=== PATIENT | female | born 1965 ===

== ENCOUNTER 2020-01-19 11:05 | Outpatient (REF) | payer OTHER, SELFPAY ==
[2020-01-19 12:00] LABS: MANUAL DIFF FLAG NO
[2020-01-19 12:10] LABS: Basophils Percent Auto 0.4 % (0-2); Eosinophils Absolute Auto 0.1 X10*3/uL (0.0-0.4); Eosinophils Percent Auto 1.1 % (0-4); Hematocrit 33.7 % (37-47); Hemoglobin 10.4 g/dl (12.0-16.0); Imm Gran Abs Auto 0.05 X10*3/uL (0.00-0.03); Imm Gran Pct Auto 0.9 % (0.0-0.4); Lymphocytes Absolute Auto 1.4 X10*3/uL (1.2-4.9); Lymphocytes Percent Auto 25.6 % (20-40); Mean Corpuscular HGB Conc 30.9 g/dl (31.0-35.0); Mean Corpuscular Hemoglobin 20.6 pg (27.0-33.0); Mean Corpuscular Volume 66.7 fL (80-98); Mean Platelet Volume 10.3 fL (9.4-12.3); Monocytes Absolute Auto 0.4 X10*3/uL (0.1-1.2); Monocytes Percent Auto 6.5 % (2-11); Neutrophils Absolute Auto 3.6 X10*3/uL (2.0-8.3); Neutrophils Percent Auto 65.5 % (45-73); Platelet Count 358 X10*3/uL (160-400); Red Blood Count 5.05 X10*6/uL (4.20-5.50); Red Cell Distribution Width 15.4 % (11.0-16.0); White Blood Count 5.6 X10*3/uL (4.8-10.8)
[2020-01-19 12:50] LABS: Free T4 (Free Thyroxine) 1.28 ng/dL (0.71-1.85); Thyroid Stimulating Hormone 0.84 mIU/mL (0.32-4.0)
[2020-01-19 12:55] LABS: Troponin-I High Sensitivity < 3.5 ng/L (<3.5-17.0)
[2020-01-19 14:14] LABS: Alanine Aminotransferase 20 U/L (0-31); Albumin Level 4.4 g/dL (3.5-5.0); Alkaline Phosphatase 132 U/L (39-117); Anion Gap 12 (12-20); Aspartate Amino Transferase 14 U/L (5-31); Bilirubin Total 0.2 mg/dL (0.0-1.0); Blood Urea Nitrogen 10 mg/dL (9-16); C Reactive Protein 1.74 mg/dL (< or = 0.50); Calcium 9.7 mg/dL (8.4-10.2); Carbon Dioxide 29 mmol/L (22-29); Chloride 98 mmol/L (96-108); Estimated Glomerular Filt Rate > 60; Glucose Random 360 mg/dL (60-115); Iron 27 mcg/dL (30-160); Percent Iron Saturation 7 % (15-50); Potassium 4.4 mmol/l (3.3-5.1); Sodium 135 mmol/L (135-145); Total Iron Binding Capacity 376 mcg/dL (228-428); Total Protein 7.7 g/dL (6.5-8.0); Unsaturated Iron Binding 349 ug/dL
[2020-01-19 16:37] LABS: Estimated Average Glucose 295 mg/dL; Hemoglobin A1c % 11.9 %
== END 2020-01-19 11:06 | disposition home or self-care (01) ==
LOC: HO.LAB 11:05
PROVIDERS: PCP Internal Medicine; Visit Provider Internal Medicine
DX: R42 Dizziness and giddiness (principal); I10 Essential (primary) hypertension; M79.602 Pain in left arm; R10.9 Unspecified abdominal pain; R53.83 Other fatigue
CPT/HCPCS: 36415; 80053; 82550; 83036; 83540; 84439; 84443; 84484; 85025; 86140

== ENCOUNTER 2020-01-24 12:23 | Emergency (ER) | payer OTHER, SELFPAY ==
[2020-01-24 12:44] VITALS: BP 153/74; PULSE 83; RESP 16; TEMP 37.1; O2SAT 99; BMI 27.8
[2020-01-24 12:46] VITALS: BP 153/74; PULSE 82; RESP 16; TEMP 37.1; O2SAT 99
--- NOTE | 2020-01-24 13:08 | XR_ITS ---
EXAMINATION: XR SHOULDER, LEFT CLINICAL INFORMATION: Left shoulder pain radiating down arm COMPARISON: None TECHNIQUE: AP external rotation and Grashey views of the left shoulder. FINDINGS: The bones and soft tissues are normal. No fracture. Glenohumeral and acromioclavicular alignment is anatomic with normal joint space. No abnormal soft tissue calcifications. The visualized portion of the lungs is clear. IMPRESSION: Normal left shoulder.
--- NOTE | 2020-01-24 13:08 | CT_ITS ---
EXAMINATION: CT HEAD WITHOUT CONTRAST CLINICAL INFORMATION: Headache COMPARISON: None TECHNIQUE: Contiguous axial imaging was performed from the skull base to vertex without intravenous administration of contrast. This CT examination was performed using dose optimization techniques as appropriate, variously including the following: *Automated exposure control *Adjustment of mA and/or kV according to patient size (this includes techniques or standardized protocols for targeted exams where dose is matched to indication/reason for exam; i.e. extremities or head) *Use of iterative reconstruction technique DLP: 762 mGy-cm FINDINGS: There is no evidence of acute intracranial hemorrhage or territorial infarction. No abnormal mass effect or midline shift is seen. Lawler to white matter differentiation is well preserved. No extra-axial fluid collections are identified. The ventricles are normal in size. There is no abnormal attenuation within the brain parenchyma. The osseous structures and soft tissues are normal. The mastoid air cells and visualized portions of the paranasal sinuses are well aerated. IMPRESSION: No acute intracranial pathology.
--- NOTE | 2020-01-24 13:08 | ECG_ITS ---
Test Reason : HEADACHE Blood Pressure : / mmHG Vent. Rate : 082 BPM Atrial Rate : 082 BPM P-R Int : 128 ms QRS Dur : 080 ms QT Int : 374 ms P-R-T Axes : 051 -04 002 degrees QTc Int : 436 ms Normal sinus rhythm Left axis deviation Nonspecific T wave abnormality Abnormal ECG No previous ECGs available Referred By: Henrique Cerna Electronically Signed By:CIRILO MONTAGUE MD
[2020-01-24 13:45] LABS: MANUAL DIFF FLAG NO
[2020-01-24 13:47] LABS: Basophils Percent Auto 0.2 % (0-2); Eosinophils Absolute Auto 0.1 X10*3/uL (0.0-0.4); Eosinophils Percent Auto 1.4 % (0-4); Hematocrit 34.9 % (37-47); Hemoglobin 10.6 g/dl (12.0-16.0); Imm Gran Abs Auto 0.02 X10*3/uL (0.00-0.03); Imm Gran Pct Auto 0.3 % (0.0-0.4); Lymphocytes Absolute Auto 1.6 X10*3/uL (1.2-4.9); Mean Corpuscular HGB Conc 30.4 g/dl (31.0-35.0); Mean Corpuscular Hemoglobin 19.9 pg (27.0-33.0); Mean Corpuscular Volume 65.6 fL (80-98); Mean Platelet Volume 9.6 fL (9.4-12.3); Monocytes Absolute Auto 0.4 X10*3/uL (0.1-1.2); Monocytes Percent Auto 7.5 % (2-11); Neutrophils Absolute Auto 3.6 X10*3/uL (2.0-8.3); Neutrophils Percent Auto 62.6 % (45-73); Platelet Count 340 X10*3/uL (160-400); Red Blood Count 5.32 X10*6/uL (4.20-5.50); Red Cell Distribution Width 15.3 % (11.0-16.0); White Blood Count 5.8 X10*3/uL (4.8-10.8)
[2020-01-24 13:58] LABS: Prothrombin Time 11.5 SEC (10.8-13.0)
[2020-01-24 14:01] LABS: Partial Thromboplastin Time 34.6 SEC (24.1-38.0)
--- NOTE | 2020-01-24 14:08 | ED_ITS ---
HPI - Headache General Chief Complaint: Headache Stated Complaint: arm pain headache r eye twitching Time Seen by Provider: 01/24/20 17:15 History of Present Illness HPI Narrative: Patient presents to ED for resolved right-sided headache and right eye twitching. Patient states history of migraines. Patient states only complaints physically is left shoulder pain radiating down left arm for the past week. Patient denies any chest pain or shortness of breath. Patient states no fever or chills. Patient denies any recent head trauma. patient presently denies any headache. Patient denies ever having any eye pain or blurry vision. MD elicited complaint: migraine Related Data Previous Rx's Medication Instructions Recorded naproxen 500 mg PO BID PRN #20 tab 01/24/20 Allergies Allergy/AdvReac Type Severity Reaction Status Date / Time prochlorperazine [Compazine] Allergy Unknown Verified 09/26/15 00:00 From COMPAZINE Allergy Unknown UNK Uncoded 12/24/19 16:03 Review of Systems Constitutional: Constitutional: Reports as per HPI and Reports no additional constitutional complaints Comments: headache resolved before coming to the ED Eyes: Eyes: Reports as per HPI and Reports no additional eye complaints ENT: Reports system reviewed and no additional complaints, except as documented and Reports as per HPI Cardiovascular: Cardiovascular: Reports as per HPI and Reports no additional cardiovascular complaints Respiratory: Respiratory: Reports as per HPI and Reports no additional respiratory complaints Gastrointestinal: Gastrointestinal: Reports as per HPI and Reports no additional gastrointestinal complaints Musculoskeletal: Musculoskeletal: Reports no additional musculoskeletal c omplaints and Reports as per HPI Comments: positive for left shoulder/arm Neurologic: Reports system reviewed and no additional complaints, except as documented and Reports as per HPI Psychiatric: Psychiatric: Reports no additional psychiatric complaints and Reports as per HPI PMF Past Medical History Medical History (Updated 01/24/20 @ 17:25 by MARTHA Hayden) Asthma Diabetes Migraine Social History Social History Alcohol intake: never Smoking Status: Never smoker Use of substances other than those prescribed or required for medical reasons: No Advance Directives: No Advance Directives Information Provided: No Physical Exam Vital Signs: Vital Signs: Vital Signs Temp Pulse Resp BP Pulse Ox 01/24/20 17:03 99.0 F 83 18 145/79 H 98 01/24/20 15:19 98.8 F 98 18 133/76 97 01/24/20 12:46 98.7 F 82 16 153/74 H 99 01/24/20 12:44 98.7 F 83 16 153/74 H 99 Body Mass Index 27.8 Const: General: cooperative, healthy appearing, comfortable and no acute distress HENMT: Head: Yes normal to inspection, No No palpable skull fracture present, Yes atraumatic, No Bejarano's sign, No contusion, No hematoma, No laceration, No occipital foramen tenderness, No raccoon eyes, No scalp lesion and No Temporal artery tenderness present Ears: hearing grossly normal bilaterally Eyes: General: appearance normal, both eyes and all related structures Visual Paz: normal visual paz by confrontation Neck: Neck: Yes normal visual inspection, Yes full ROM, Yes no lymphadenopathy, Yes no meningeal signs, No positive Brudzinski's sign, No positive Kernig's sign and No tender Chest: Chest palpation & inspection: normal inspection of the chest and normal palpation of entire chest wall Resp: Effort & Inspection: normal respiratory effort and able to speak in complete sentences Cardio: Jugular venous distension: no JVD Rate: regular rate Heart sounds: S1 normal heart sound present and S2 normal heart sound present GI: Inspection: Yes normal to inspection, No abdominal wall ecchymosis, No Abdominal wall edema, No distended, No obesity and No scaphoid Palpation (GI): Soft to palpation, not firm, nontender, no guarding and not rigid Percussion: Yes normal to percussion Auscultation: normal bowel sounds : General: No CVA tenderness and Yes no CVA tenderness Back/Spine/Pelvis: Back: no CVA tenderness, No CVA tenderness and No back tenderness Skin: General skin exam: no rashes or lesions noted Neuro: General: gait normal, no meningeal signs and CN's II-XI intact bilaterally Cranial nerves: Yes CN's II-XII intact bilaterally Extrem: Other: Left upper extremity negative for any redness, swelling, coolness, or bluish discoloration of fingers. Negative for any ecchymosis to indicate trauma. General: Yes normal to inspection and Yes full ROM Left upper extremity: normal to inspection, full ROM and shoulder/upper arm Details: tenderness Location: of the A-C joint Course Course Course Narrative: Headache resolved. Headache with resolved right eye twitching most likely due to migraines. Due to aging patient stating left arm pain patient will have EKG and troponin to rule out any cardiac etiology. Neuro exam is intact. Reevaluation(s) Reevaluation #1: Patient presents not in any distress. Once again patient denies any headache. Patient main concern was left arm pain Time: 14:18 Reevaluation #2: patient's shoulder x-ray is normal. Troponin negative after 1 week of left shoulder /arm pain. Head CT negative. Patient did not have any headache during the ED visit. Patient did not had any eye pain during ED visit. Diagnosis is migraine exacerbation. Patient already has imitriptan at home. Patient states before discharge her left arm pain is similar to her her carpal tunnel syndrome exacerbation of left wrist / forearm. Patient describes pain as tingling sharp cramping pain. patient already has medical sprain at home. Patient only ask for pain meds Time: 17:09 MDM - Headache MDM Narrative Medical decision making narrative: Left upper extremity pain. Left upper extremity negative for any redness, swelling, coldness, or bluish discoloration of fingers to indicate DVT, cellulitis, or arterial occlusion. Negative for any deformity to indicate fracture. Lab Data Result diagrams: 01/24/20 13:40 01/24/20 13:40 Labs: Lab Results 01/24/20 01/24/20 01/24/20 Range/Units 13:40 13:40 13:40 WBC 5.8 (4.8-10.8) X10*3/uL RBC 5.32 (4.20-5.50) X10*6/uL Hgb 10.6 L (12.0-16.0) g/dl Hct 34.9 L (37-47) % MCV 65.6 L (80-98) fL MCH 19.9 L (27.0-33.0) pg MCHC 30.4 L (31.0-35.0) g/dl RDW 15.3 (11.0-16.0) % Plt Count 340 (160-400) X10*3/uL MPV 9.6 (9.4-12.3) fL Immature Gran % (Auto) 0.3 (0.0-0.4) % Neut % (Auto) 62.6 (45-73) % Lymph % (Auto) 28.0 (20-40) % Radford % (Auto) 7.5 (2-11) % Eos % (Auto) 1.4 (0-4) % Baso % (Auto) 0.2 (0-2) % Lymph # (Auto) 1.6 (1.2-4.9) X10*3/uL Radford # (Auto) 0.4 (0.1-1.2) X10*3/uL Eos # (Auto) 0.1 (0.0-0.4) X10*3/uL Baso # (Auto) 0.0 (0.0-0.2) X10*3/uL Abs Immat Gran (auto) 0.02 (0.00-0.03) X10*3/uL Absolute Neuts (auto) 3.6 (2.0-8.3) X10*3/uL Absolute Nucleated RBC 0.000 (0.0-0.012) X10*3/uL Nucleated RBC % (auto) 0.0 (0.0-0.2) /100WBC PT 11.5 (10.8-13.0) SEC INR 1.0 (0.9-1.1) APTT 34.6 (24.1-38.0) SEC Sodium 138 (135-145) mmol/L Potassium 4.0 (3.3-5.1) mmol/l Chloride 103 (96-108) mmol/L Carbon Dioxide 27 (22-29) mmol/L Anion Gap 12 (12-20) BUN 15 (9-16) mg/dL Creatinine 0.73 (0.5-1.4) mg/dL Estim Creat Clear Calc 85.3 Estimated GFR > 60 Random Glucose 254 H (60-115) mg/dL Calcium 9.4 (8.4-10.2) mg/dL Magnesium 1.9 (1.6-2.6) mg/dL Total Bilirubin < 0.2 (0.0-1.0) mg/dL AST 15 (5-31) U/L ALT 22 (0-31) U/L Alkaline Phosphatase 132 H (39-117) U/L Troponin I High Sens (<3.5-17.0) ng/L Total Protein 7.7 (6.5-8.0) g/dL Albumin 4.4 (3.5-5.0) g/dL 01/24/20 Range/Units 13:40 WBC (4.8-10.8) X10*3/uL RBC (4.20-5.50) X10*6/uL Hgb (12.0-16.0) g/dl Hct (37-47) % MCV (80-98) fL MCH (27.0-33.0) pg MCHC (31.0-35.0) g/dl RDW (11.0-16.0) % Plt Count (160-400) X10*3/uL MPV (9.4-12.3) fL Immature Gran % (Auto) (0.0-0.4) % Neut % (Auto) (45-73) % Lymph % (Auto) (20-40) % Radford % (Auto) (2-11) % Eos % (Auto) (0-4) % Baso % (Auto) (0-2) % Lymph # (Auto) (1.2-4.9) X10*3/uL Radford # (Auto) (0.1-1.2) X10*3/uL Eos # (Auto) (0.0-0.4) X10*3/uL Baso # (Auto) (0.0-0.2) X10*3/uL Abs Immat Gran (auto) (0.00-0.03) X10*3/uL Absolute Neuts (auto) (2.0-8.3) X10*3/uL Absolute Nucleated RBC (0.0-0.012) X10*3/uL Nucleated RBC % (auto) (0.0-0.2) /100WBC PT (10.8-13.0) SEC INR (0.9-1.1) APTT (24.1-38.0) SEC Sodium (135-145) mmol/L Potassium (3.3-5.1) mmol/l Chloride (96-108) mmol/L Carbon Dioxide (22-29) mmol/L Anion Gap (12-20) BUN (9-16) mg/dL Creatinine (0.5-1.4) mg/dL Estim Creat Clear Calc Estimated GFR Random Glucose (60-115) mg/dL Calcium (8.4-10.2) mg/dL Magnesium (1.6-2.6) mg/dL Total Bilirubin (0.0-1.0) mg/dL AST (5-31) U/L ALT (0-31) U/L Alkaline Phosphatase (39-117) U/L Troponin I High Sens < 3.5 (<3.5-17.0) ng/L Total Protein (6.5-8.0) g/dL Albumin (3.5-5.0) g/dL Discharge Plan Discharge Clinical Impression: Migraine, Acute shoulder pain, Carpal tunnel syndrome of left wrist Patient Disposition: Home, Self-Care Instructions: Migraine Headache (ED), Shoulder Pain (ED) Additional Instructions: Return to the ED for any loss of vision, slurred speech, dizziness, paralysis of extremities, shortness of breath, chest pain, severe headache, swelling of upper extremity, redness of upper extremity, bluish discoloration of fingers, weakness, or any other concerning symptoms. Prescriptions: New naproxen 500 mg tablet 500 mg PO BID PRN (Reason: pain) Qty: 20 RF: 0 Referrals: Eleazar Viramontes MD [Primary Care Provider] - 2 days (migraine exacerbation. Left wrist carpal tunnel syndrome. Shoulder pain. Xray normal.) Bryan Smith MD [Physician] - 2 days (Left wrist carpal tunnel syndrome. Patient has history of carpal tunnel syndrome and has had rehab in the past. NO trauma of left forearm/hand/wrist.) Interventions: ED Discharge Assessment Last Done: 01/24/20 18:04 Discharge Date/Time: 01/24/20 18:04 Print Language: Maldivian
[2020-01-24 14:14] LABS: Alanine Aminotransferase 22 U/L (0-31); Albumin Level 4.4 g/dL (3.5-5.0); Alkaline Phosphatase 132 U/L (39-117); Anion Gap 12 (12-20); Aspartate Amino Transferase 15 U/L (5-31); Bilirubin Total < 0.2 mg/dL (0.0-1.0); Blood Urea Nitrogen 15 mg/dL (9-16); Calcium 9.4 mg/dL (8.4-10.2); Carbon Dioxide 27 mmol/L (22-29); Chloride 103 mmol/L (96-108); Creatinine Clr Calc Pharmacy 85.3; Estimated Glomerular Filt Rate > 60; Glucose Random 254 mg/dL (60-115); Magnesium 1.9 mg/dL (1.6-2.6); Sodium 138 mmol/L (135-145); Total Protein 7.7 g/dL (6.5-8.0)
[2020-01-24 14:15] LABS: Troponin-I High Sensitivity < 3.5 ng/L (<3.5-17.0)
[2020-01-24 15:19] VITALS: BP 133/76; PULSE 98; RESP 18; TEMP 37.1; O2SAT 97
[2020-01-24 17:03] VITALS: BP 145/79; PULSE 83; RESP 18; TEMP 37.2; O2SAT 98
== END 2020-01-24 18:04 | disposition home or self-care (01) ==
PROVIDERS: Physician Assistant; Emergency Provider Emergency Medicine; PCP Internal Medicine
DX: G43.909 Migraine, unspecified, not intractable, without status migrainosus (principal); G56.02 Carpal tunnel syndrome, left upper limb; M25.512 Pain in left shoulder; E11.9 Type 2 diabetes mellitus without complications; J45.909 Unspecified asthma, uncomplicated
CPT/HCPCS: 36415; 70450; 73030; 80053; 83735; 84484; 85025; 85610; 85730; 93005; 99284

== ENCOUNTER → 2020-02-08 12:42 | Outpatient (BNVA) | payer OTHER, SELFPAY | PROVIDERS: PCP Internal Medicine; Referring Provider Internal Medicine; Visit Provider Orthopaedic Surgery | DX: M79.602 Pain in left arm (principal); M25.512 Pain in left shoulder | CPT/HCPCS: 99212 ==

== ENCOUNTER 2020-06-30 15:47 | Outpatient (REF) | payer OTHER, SELFPAY ==
[2020-06-30 16:14] LABS: MANUAL DIFF FLAG NO
[2020-06-30 16:19] LABS: Basophils Percent Auto 0.5 % (0-2); Eosinophils Absolute Auto 0.1 X10*3/uL (0.0-0.4); Eosinophils Percent Auto 1.5 % (0-4); Hematocrit 35.9 % (37-47); Hemoglobin 11.1 g/dl (12.0-16.0); Imm Gran Abs Auto 0.03 X10*3/uL (0.00-0.03); Imm Gran Pct Auto 0.5 % (0.0-0.4); Lymphocytes Percent Auto 29.8 % (20-40); Mean Corpuscular HGB Conc 30.9 g/dl (31.0-35.0); Mean Corpuscular Hemoglobin 20.5 pg (27.0-33.0); Mean Corpuscular Volume 66.2 fL (80-98); Mean Platelet Volume 9.4 fL (9.4-12.3); Monocytes Absolute Auto 0.5 X10*3/uL (0.1-1.2); Monocytes Percent Auto 7.8 % (2-11); Neutrophils Percent Auto 59.9 % (45-73); Platelet Count 311 X10*3/uL (160-400); Red Blood Count 5.42 X10*6/uL (4.20-5.50); Red Cell Distribution Width 15.9 % (11.0-16.0); White Blood Count 6.6 X10*3/uL (4.8-10.8)
[2020-06-30 16:27] LABS: Estimated Average Glucose 312 mg/dL; Hemoglobin A1c % 12.5 %
[2020-06-30 16:46] LABS: Alanine Aminotransferase 38 U/L (0-31); Albumin Level 4.4 g/dL (3.5-5.0); Alkaline Phosphatase 155 U/L (39-117); Anion Gap 13 (12-20); Aspartate Amino Transferase 20 U/L (5-31); Bilirubin Total 0.2 mg/dL (0.0-1.0); Blood Urea Nitrogen 13 mg/dL (9-16); C Reactive Protein 1.86 mg/dL (< or = 0.50); Calcium 10.9 mg/dL (8.4-10.2); Carbon Dioxide 29 mmol/L (22-29); Chloride 101 mmol/L (96-108); Estimated Glomerular Filt Rate > 60; Glucose Random 217 mg/dL (60-115); Iron 51 mcg/dL (30-160); Lipase 35 U/L (8-78); Percent Iron Saturation 15 % (15-50); Potassium 4.4 mmol/L (3.3-5.1); Sodium 139 mmol/L (135-145); Total Iron Binding Capacity 341 mcg/dL (228-428); Total Protein 7.7 g/dL (6.5-8.0); Unsaturated Iron Binding 290 ug/dL
== END 2020-06-30 15:48 | disposition home or self-care (01) ==
LOC: HO.LAB 15:47
PROVIDERS: PCP Internal Medicine; Visit Provider Internal Medicine
DX: E11.9 Type 2 diabetes mellitus without complications (principal); D64.9 Anemia, unspecified; K21.9 Gastro-esophageal reflux disease without esophagitis; R10.9 Unspecified abdominal pain
CPT/HCPCS: 36415; 80053; 83036; 83540; 83690; 85025; 86140

== ENCOUNTER 2020-07-21 14:51 | Outpatient (REF) | payer OTHER, SELFPAY ==
[2020-07-21 16:00] LABS: COVID-19 Test Negative (Negative)
== END 2020-07-21 14:52 | disposition home or self-care (01) ==
LOC: HO.LAB 14:51
PROVIDERS: Visit Provider Internal Medicine
DX: Z20.822 Contact with and (suspected) exposure to COVID-19 (principal)
CPT/HCPCS: 36415; 87635; C9803

== ENCOUNTER 2020-08-05 12:00 | Outpatient (REF) | payer OTHER, SELFPAY ==
[2020-08-05 13:11] LABS: Anion Gap 12 (12-20); Blood Urea Nitrogen 9 mg/dL (9-16); Calcium 9.4 mg/dL (8.4-10.2); Carbon Dioxide 28 mmol/L (22-29); Chloride 103 mmol/L (96-108); Estimated Glomerular Filt Rate > 60; Glucose Random 169 mg/dL (60-115); Potassium 4.1 mmol/L (3.3-5.1); Sodium 139 mmol/L (135-145)
[2020-08-05 13:30] LABS: Estimated Average Glucose 235 mg/dL; Hemoglobin A1c % 9.8 %
== END 2020-08-05 12:01 | disposition home or self-care (01) ==
LOC: HO.LAB 12:00
PROVIDERS: PCP Internal Medicine; Visit Provider Internal Medicine
DX: E11.9 Type 2 diabetes mellitus without complications (principal)
CPT/HCPCS: 36415; 80048; 83036

== ENCOUNTER 2020-10-04 12:16 | Outpatient (REF) | payer OTHER, SELFPAY ==
[2020-10-04 13:40] LABS: Estimated Average Glucose 203 mg/dL; Hemoglobin A1c % 8.7 %
[2020-10-04 13:44] LABS: Anion Gap 11 (12-20); Blood Urea Nitrogen 16 mg/dL (9-16); Calcium 9.4 mg/dL (8.4-10.2); Carbon Dioxide 28 mmol/L (22-29); Chloride 103 mmol/L (96-108); Estimated Glomerular Filt Rate > 60; Glucose Random 185 mg/dL (60-115); Potassium 4.2 mmol/L (3.3-5.1); Sodium 138 mmol/L (135-145)
== END 2020-10-04 12:17 | disposition home or self-care (01) ==
LOC: HO.LAB 12:16
PROVIDERS: PCP Internal Medicine; Visit Provider Internal Medicine
DX: E11.9 Type 2 diabetes mellitus without complications (principal)
CPT/HCPCS: 36415; 80048; 83036

== ENCOUNTER 2020-10-12 09:05 | Day surgery (SDC) | payer OTHER, SELFPAY ==
[2020-09-15 14:56] VITALS: BMI 28.1
--- NOTE | 2020-09-19 13:33 | P.CONAN_ITS ---
HPI - Anesthesia Eval Consult details Narrative: 54yo F for Upper Endoscopy and Colonoscopy [facility] Active Problems Active Problems: All Active Problems (Updated 09/15/20 @ 14:45 by Herminia Navarro) Arm pain (Acute) Past Medical History Medical History (Updated 09/19/20 @ 13:34 by Danika Marcus) Anemia Arm pain Asthma Diabetes GERD (gastroesophageal reflux disease) Migraine Family History Family History Mother No problems noted. Father No problems noted. 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 Meds Allergies Allergy/AdvReac Type Severity Reaction Status Date / Time prochlorperazine [Compazine] Allergy Unknown Unknown Verified 09/15/20 14:46 Home Medications Medication Instructions Recorded Confirmed Last Taken Type albuterol sulfate [ProAir HFA] 2 puff PO Q4H PRN 09/15/20 09/15/20 Unknown History amitriptyline 1 tab PO BEDTIME 09/15/20 09/15/20 Unknown History atorvastatin 1 tab PO QPM 09/15/20 09/15/20 Unknown History mflhevtsev-oayyhedlzmueo-olmq 1 tab PO Q6H PRN 09/15/20 09/15/20 Unknown History ferrous sulfate 1 tab PO DAILY 09/15/20 09/15/20 Unknown History glipizide 1 tab PO BID 09/15/20 09/15/20 Unknown History ibuprofen 400 mg PO Q6H PRN 09/15/20 09/15/20 Unknown History metformin 2 tab PO BID 09/15/20 09/15/20 Unknown History omeprazole 1 cap PO QAM 09/15/20 09/15/20 Unknown History sitagliptin [Januvia] 1 tab PO DAILY 09/15/20 09/15/20 Unknown History Exam Exam Date and Time: September 19, 2020 1333 Height,Weight and Vital Signs: Height 5 ft 4 in Weight 74.389 kg Narrative Narrative: EKG 01/2020 Vent. Rate : 082 BPM Atrial Rate : 082 BPM P-R Int : 128 ms QRS Dur : 080 ms QT Int : 374 ms P-R-T Axes : 051 -04 002 degrees QTc Int : 436 ms Normal sinus rhythm Left axis deviation Nonspecific T wave abnormality Abnormal ECG No previous ECGs available Assessment and Plan Assessment Anesthesia Assessment: Chart Reviewed
--- NOTE | 2020-10-11 09:37 | P.CONAN_ITS ---
Documented by User: Danika Marcus 10/11/20 09:38 HPI - Anesthesia Eval Consult details Narrative: 54yo F for Upper Endoscopy and Colonoscopy [facility] Active Problems Active Problems: All Active Problems (Updated 09/19/20 @ 13:34 by Danika Marcus) Arm pain (Acute) Past Medical History Medical History (Updated 09/19/20 @ 13:34 by Danika Marcus) Anemia Arm pain Asthma Diabetes GERD (gastroesophageal reflux disease) Migraine Family History Family History Mother No problems noted. Father No problems noted. 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 Meds Allergies Allergy/AdvReac Type Severity Reaction Status Date / Time prochlorperazine [Compazine] Allergy Unknown Unknown Verified 10/12/20 09:52 Home Medications Medication Instructions Recorded Confirmed Last Taken Type albuterol sulfate [ProAir HFA] 2 puff PO Q4H PRN 09/15/20 09/15/20 Unknown History amitriptyline 1 tab PO BEDTIME 09/15/20 09/15/20 Unknown History atorvastatin 1 tab PO QPM 09/15/20 09/15/20 Unknown History svnbunliim-qlwjtkkynqzab-denc 1 tab PO Q6H PRN 09/15/20 09/15/20 Unknown History ferrous sulfate 1 tab PO DAILY 09/15/20 10/12/20 10/05/20 History glipizide 1 tab PO BID 09/15/20 09/15/20 Unknown History ibuprofen 400 mg PO Q6H PRN 09/15/20 09/15/20 Unknown History metformin 2 tab PO BID 09/15/20 10/12/20 10/11/20 11:00 History omeprazole 1 cap PO QAM 09/15/20 10/12/20 10/12/20 08:30 History sitagliptin [Januvia] 1 tab PO DAILY 09/15/20 09/15/20 Unknown History Exam Exam Date and Time: October 11, 2020 0937 Height,Weight and Vital Signs: Height 5 ft 4 in Weight 74.389 kg Pertinent Lab Results Pertinent Lab Results: Laboratory Tests 06/30/20 10/04/20 16:00 12:40 WBC 6.6 Hgb 11.1 L Hct 35.9 L Plt Count 311 Sodium 138 Potassium 4.2 Chloride 103 Carbon Dioxide 28 BUN 16 D Creatinine 0.73 Assessment and Plan Assessment Anesthesia Assessment: Chart Reviewed Documented by User: Radha Beatty 10/12/20 10:06 PMF[facility] Past Medical History Medical History (Updated 09/19/20 @ 13:34 by Danika Marcus) Anemia Arm pain Asthma Diabetes GERD (gastroesophageal reflux disease) Migraine Family History Family History Mother No problems noted. Father No problems noted. 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 Meds Allergies Allergy/AdvReac Type Severity Reaction Status Date / Time prochlorperazine [Compazine] Allergy Unknown Unknown Verified 10/12/20 09:52 Home Medications Medication Instructions Recorded Confirmed Last Taken Type albuterol sulfate [ProAir HFA] 2 puff PO Q4H PRN 09/15/20 09/15/20 Unknown History amitriptyline 1 tab PO BEDTIME 09/15/20 09/15/20 Unknown History atorvastatin 1 tab PO QPM 09/15/20 09/15/20 Unknown History rjtdknlujn-moeiskrrkmlhr-quyp 1 tab PO Q6H PRN 09/15/20 09/15/20 Unknown History ferrous sulfate 1 tab PO DAILY 09/15/20 10/12/20 10/05/20 History glipizide 1 tab PO BID 09/15/20 09/15/20 Unknown History ibuprofen 400 mg PO Q6H PRN 09/15/20 09/15/20 Unknown History metformin 2 tab PO BID 09/15/20 10/12/20 10/11/20 11:00 History omeprazole 1 cap PO QAM 09/15/20 10/12/20 10/12/20 08:30 History sitagliptin [Januvia] 1 tab PO DAILY 09/15/20 09/15/20 Unknown History Exam Airway Mallampati Class: II (Missing 3 teeth) TM Dist: >3cm Neck ROM: Full Heart: rrr Lungs: cta Assessment and Plan Assessment Anesthesia Assessment: Anesthesia Plan Discussed and Chart Reviewed Final Anesthetic Review NPO: Yes (Sip water with med) ASA Class: II Final Preanesthetic Review: No Changes in Pt Med Stat and Consent Obtained/Reviewed Patient Risk: Intermediate Procedure Risk: Intermediate Anesthetic Plan Anesthetic Plan: MAC: Disposition: Standard PACU
[2020-10-12 10:02] VITALS: BP 150/66; PULSE 63; RESP 16; TEMP 36.6; O2SAT 98
[2020-10-12 10:06] LABS: Glucose, Whole Blood 158 mg/dL (60-115)
[2020-10-12] MEDS: Lactated Ringers 1,000 ML 100 ML IVCONT (10:25)
[2020-10-12 11:34] VITALS: BP 116/66; PULSE 67; RESP 16; TEMP 36.2; O2SAT 97
--- NOTE | 2020-10-12 11:41 | PM.OP ---
Brief Operative Note Date of Service: 10/12/20 Pre-op diagnosis: Abdominal pain, anemia, screening Post-op diagnosis: other (Hiatal hernia, R/O celiac disease, Diverticulosis) Procedure: EGD with biopsies, Colonoscopy to the cecum Surgeon: Pedro Luis Burroughs Anesthesia: MAC Was an Dramatic Agent used for this Procedure?: No Estimated blood loss (mL): 4.0 Pathology: other (A. Descending duodenum B. Gastric antrum) Condition: stable Disposition: PACU
[2020-10-12 11:49] VITALS: BP 117/69; PULSE 63; RESP 17; TEMP 36.3; O2SAT 96
--- NOTE | 2020-10-12 12:28 | OP_ITS ---
SURGEON: Pedro Luis Burroughs MD PREOPERATIVE DIAGNOSIS: POSTOPERATIVE DIAGNOSIS: PROCEDURE PERFORMED: Esophagogastroduodenoscopy with biopsies, and colonoscopy to the cecum. Full consent has been obtained from her for this, including risks of bleeding and perforation. ESTIMATED BLOOD LOSS: COMPLICATIONS: ANESTHESIA: Monitored anesthesia care. ASSISTANTS: SPECIMENS: PREOPERATIVE DIAGNOSES: Gastroesophageal reflux, abdominal discomfort, and colorectal cancer screening. POSTOPERATIVE DIAGNOSES: Gastroesophageal reflux, abdominal discomfort, and colorectal cancer screening, hiatal hernia, rule out celiac disease, diverticulosis, and internal hemorrhoids. DESCRIPTION OF PROCEDURE: The patient was placed in the left lateral decubitus position. The Olympus video gastroscope was passed in the posterior oropharynx and upper esophagus under direct vision. The scope was passed slowly into the distal esophagus. The gastroesophageal junction appeared normal at 35 cm. There was no sign of any mass or ulceration. There was no gross evidence of Campos's esophagus. The scope entered into the stomach. There was a small hiatal hernia. The scope was advanced to the pylorus and the duodenum was cannulated to the descending portion. The duodenum including the bulb appeared normal without mass or ulceration. Biopsies were obtained at the second and third portions of duodenum. The scope was withdrawn back into the stomach. The gastric antrum and body appeared normal with good peristalsis. Scope was retroflexed visualizing the proximal stomach carefully, which appeared normal, without any sign of mass or ulceration. The scope was straightened. Biopsies were obtained from the gastric antrum. The scope was withdrawn back into the esophagus. The esophageal mucosa appeared normal. The scope was withdrawn from the patient. She was turned around for colonoscopy. The digital rectal exam revealed no abnormalities. The Olympus video pediatric colonoscope was entered into the rectum and advanced easily to the cecum. Once in the cecum, I did identify normal-appearing cecal pouch with appendiceal orifice and a normal-appearing ileocecal valve. The entire cecum and ileocecal valve appeared normal. The scope was slowly withdrawn assessing all mucosal surfaces carefully. Preparation was excellent. I did not visualize any sign of polyps, colitis, nor angiodysplasia. There was a mild amount of sigmoid diverticulosis. In the rectum, scope was retroflexed visualizing internal hemorrhoids, but no other pathology. The rectal mucosa appeared normal. The scope was straightened out and withdrawn from the patient. She tolerated both procedures well and was returned to the recovery area in stable condition. IMPRESSION: 1. Small hiatal hernia. 2. Rule out celiac disease. 3. Rule out gastritis and/or Helicobacter pylori. 4. Diverticulosis. 5. Internal hemorrhoids. PLAN: The results of the biopsies will be checked. She was advised to resume her iron in regard to her anemia. I do feel that her anemia is related to her heavy menses. She was advised not to use any aspirin and NSAIDs for at least a week. Given the patient's negative colonoscopy, I would recommend a repeat colonoscopy in 10 years for further screening. She was advised to see me again in several months for a followup visit. She was to have had an abdominal ultrasound, but she apparently did not keep that appointment. When I see her in followup, we can reschedule that if need be. If Helicobacter pylori is present in the gastric biopsies, I would not necessarily treat that at this time until I see her in followup. MD TYLER Frazeir/GINA / [id number]
== END 2020-10-12 12:30 | disposition home or self-care (01) ==
PROVIDERS: PCP Internal Medicine; Visit Provider Internal Medicine
PROC: (CPT 45378; principal; 2020-10-12 10:00)
DX: Z12.11 Encounter for screening for malignant neoplasm of colon (principal); K57.30 Diverticulosis of large intestine without perforation or abscess without bleeding; K64.8 Other hemorrhoids; K21.9 Gastro-esophageal reflux disease without esophagitis; K44.9 Diaphragmatic hernia without obstruction or gangrene; K29.50 Unspecified chronic gastritis without bleeding; B96.81 Helicobacter pylori [H. pylori] as the cause of diseases classified elsewhere; D50.9 Iron deficiency anemia, unspecified; J45.909 Unspecified asthma, uncomplicated; E11.9 Type 2 diabetes mellitus without complications; Z79.84 Long term (current) use of oral hypoglycemic drugs; Z79.899 Other long term (current) drug therapy; Z79.1 Long term (current) use of non-steroidal anti-inflammatories (NSAID); Z88.8 Allergy status to other drugs, medicaments and biological substances
CPT/HCPCS: 45378; 43239; 82947; 88305; 88342; J3010

== ENCOUNTER 2020-11-03 08:34 | Outpatient (REF) | payer OTHER, SELFPAY ==
--- NOTE | 2020-11-03 08:37 | EMG_ITS ---
Left median and ulnar motor and sensory studies were performed. Left radial sensory study was performed and paraspinal muscles were tested. 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 MD ASHOK Arguelles/GINA / [id number]
== END 2020-11-03 08:35 | disposition home or self-care (01) ==
LOC: HO.NEURO 08:34
PROVIDERS: PCP Internal Medicine; Visit Provider Internal Medicine
DX: M79.632 Pain in left forearm (principal)
CPT/HCPCS: 95886; 95909

== ENCOUNTER 2021-07-15 08:13 | Outpatient (REF) | payer OTHER, SELFPAY ==
[2021-07-15 08:24] LABS: MANUAL DIFF FLAG NO
[2021-07-15 09:26] LABS: Basophils Percent Auto 0.5 % (0-2); Eosinophils Absolute Auto 0.2 X10*3/uL (0.0-0.4); Eosinophils Percent Auto 2.9 % (0-4); Hematocrit 35.8 % (37.0-47.0); Hemoglobin 10.7 g/dl (12.0-16.0); Imm Gran Abs Auto 0.02 X10*3/uL (0.00-0.03); Imm Gran Pct Auto 0.3 % (0.0-0.4); Lymphocytes Absolute Auto 1.9 X10*3/uL (1.2-4.9); Mean Corpuscular HGB Conc 29.9 g/dl (31.0-35.0); Mean Corpuscular Volume 66.8 fL (80.0-98.0); Mean Platelet Volume 9.9 fL (9.4-12.3); Monocytes Absolute Auto 0.5 X10*3/uL (0.1-1.2); Neutrophils Absolute Auto 3.3 x10*3/uL (2.0-8.3); Neutrophils Percent Auto 55.3 % (45-73); Platelet Count 349 X10*3/uL (160-400); Red Blood Count 5.36 X10*6/uL (4.20-5.50); Red Cell Distribution Width 15.7 % (11.0-16.0); White Blood Count 5.9 X10*3/uL (4.8-10.8)
[2021-07-15 09:35] LABS: Estimated Average Glucose 214 mg/dL; Hemoglobin A1c % 9.1 %
[2021-07-15 09:39] LABS: Creatinine Urine 195.72 mg/dL; Microalbum/Creatinine Ratio Ur 8.1 ug/mg cr
[2021-07-15 09:55] LABS: Alanine Aminotransferase 39 U/L (0-31); Albumin Level 4.3 g/dL (3.5-5.0); Alkaline Phosphatase 141 U/L (39-117); Anion Gap 13 (12-20); Aspartate Amino Transferase 18 U/L (5-31); Bilirubin Total 0.4 mg/dL (0.0-1.0); Blood Urea Nitrogen 14 mg/dL (9-16); Calcium 9.8 mg/dL (8.4-10.2); Carbon Dioxide 28 mmol/L (22-29); Chloride 101 mmol/L (96-108); Cholesterol 228 mg/dL; Estimated Glomerular Filt Rate > 60; Glucose Fasting 192 mg/dL (60-99); HDL Cholesterol 43 mg/dL; LDL Cholesterol Calculated 129 mg/dl; Potassium 4.4 mmol/L (3.3-5.1); Sodium 138 mmol/L (135-145); Total Protein 7.6 g/dL (6.5-8.0); Triglycerides 284 mg/dL
[2021-07-15 10:02] LABS: Thyroid Stimulating Hormone 2.35 uIU/mL (0.32-4.0)
== END 2021-07-15 08:14 | disposition home or self-care (01) ==
LOC: HO.LAB 08:13
PROVIDERS: PCP Internal Medicine; Visit Provider Internal Medicine
DX: Z00.00 Encounter for general adult medical examination without abnormal findings (principal); E11.9 Type 2 diabetes mellitus without complications
CPT/HCPCS: 36415; 80053; 80061; 82043; 83036; 84443; 85025

== ENCOUNTER 2021-09-26 13:28 | Outpatient (REF) | payer OTHER, SELFPAY ==
--- NOTE | ~2021-09-26 | XR_ITS ---
EXAMINATION: XR FOOT, RIGHT CLINICAL INFORMATION: Fracture COMPARISON: None TECHNIQUE: AP, lateral, and oblique views of the right foot. FINDINGS: Bone alignment is normal. No fracture or dislocation is seen. Joint spaces are normal. There are calcaneal spurs. XR/XR foot RT min 3V IMPRESSION: No fracture or dislocation seen.
[2021-09-26 15:33] LABS: Estimated Average Glucose 157 mg/dL; Hemoglobin A1c % 7.1 %
[2021-09-26 16:18] LABS: Anion Gap 12 (12-20); Blood Urea Nitrogen 9 mg/dL (9-16); C Reactive Protein 1.83 mg/dL (< or = 0.50); Calcium 9.7 mg/dL (8.4-10.2); Carbon Dioxide 25 mmol/L (22-29); Chloride 105 mmol/L (96-108); Estimated Glomerular Filt Rate > 60; Glucose Random 126 mg/dL (60-115); Sodium 138 mmol/L (135-145); Uric Acid 3.6 mg/dL (2.4-5.7)
== END 2021-09-26 13:29 | disposition home or self-care (01) ==
LOC: HO.LAB 13:28
PROVIDERS: PCP Internal Medicine; Visit Provider Internal Medicine
DX: M79.671 Pain in right foot (principal); E11.9 Type 2 diabetes mellitus without complications
CPT/HCPCS: 36415; 73630; 80048; 83036; 84550; 86140

== ENCOUNTER 2022-12-22 08:26 | Outpatient (REF) | payer OTHER, SELFPAY ==
[2022-12-22 08:45] LABS: MANUAL DIFF FLAG NO
[2022-12-22 09:11] LABS: Basophils Percent Auto 0.6 % (0-2); Eosinophils Absolute Auto 0.2 X10*3/uL (0.0-0.4); Eosinophils Percent Auto 2.8 % (0-4); Hematocrit 36.4 % (37.0-47.0); Hemoglobin 11.3 g/dl (12.0-16.0); Imm Gran Abs Auto 0.01 X10*3/uL (0.00-0.03); Imm Gran Pct Auto 0.2 % (0.0-0.4); Lymphocytes Absolute Auto 1.5 X10*3/uL (1.2-4.9); Lymphocytes Percent Auto 28.8 % (20-40); Mean Corpuscular Hemoglobin 21.3 pg (27.0-33.0); Mean Corpuscular Volume 68.5 fL (80.0-98.0); Mean Platelet Volume 9.7 fL (9.4-12.3); Monocytes Absolute Auto 0.4 X10*3/uL (0.1-1.2); Monocytes Percent Auto 8.1 % (2-11); Neutrophils Absolute Auto 3.1 x10*3/uL (2.0-8.3); Neutrophils Percent Auto 59.5 % (45-73); Platelet Count 301 X10*3/uL (160-400); Red Blood Count 5.31 X10*6/uL (4.20-5.50); Red Cell Distribution Width 15.7 % (11.0-16.0); White Blood Count 5.3 X10*3/uL (4.8-10.8)
[2022-12-22 09:38] LABS: Creatinine Urine 176.31 mg/dL; Microalbum/Creatinine Ratio Ur 6.2 ug/mg cr (<30)
[2022-12-22 09:39] LABS: Estimated Average Glucose 146 mg/dL; Hemoglobin A1c % 6.7 % (<6.0)
[2022-12-22 09:45] LABS: Alanine Aminotransferase 19 U/L (0-31); Albumin Level 4.4 g/dL (3.5-5.0); Alkaline Phosphatase 125 U/L (39-117); Anion Gap 11 (12-20); Aspartate Amino Transferase 16 U/L (5-31); Bilirubin Total 0.4 mg/dL (0.0-1.0); Blood Urea Nitrogen 15 mg/dL (9-16); Calcium 9.9 mg/dL (8.4-10.2); Carbon Dioxide 29 mmol/L (22-29); Chloride 104 mmol/L (96-108); Cholesterol 221 mg/dL (<200); Estimated Glomerular Filt Rate > 60; Glucose Random 128 mg/dL (60-115); HDL Cholesterol 51 mg/dL (>40); LDL Cholesterol Calculated 141 mg/dL (<100); Potassium 4.2 mmol/L (3.3-5.1); Sodium 140 mmol/L (135-145); Triglycerides 147 mg/dL (<150)
[2022-12-22 10:01] LABS: Thyroid Stimulating Hormone 0.83 uIU/mL (0.32-4.0)
== END 2022-12-22 08:27 | disposition home or self-care (01) ==
LOC: HO.LAB 08:26
PROVIDERS: PCP Internal Medicine; Visit Provider Internal Medicine
DX: Z00.00 Encounter for general adult medical examination without abnormal findings (principal); E11.9 Type 2 diabetes mellitus without complications; F32.9 Major depressive disorder, single episode, unspecified; E78.00 Pure hypercholesterolemia, unspecified
CPT/HCPCS: 36415; 80053; 80061; 82043; 82570; 83036; 84443; 85025

== ENCOUNTER 2023-05-01 16:01 | Outpatient (REF) | payer OTHER, SELFPAY ==
[2023-05-01 18:04] LABS: Estimated Average Glucose 183 mg/dL
[2023-05-01 18:46] LABS: Alanine Aminotransferase 31 U/L (0-31); Albumin Level 4.4 g/dL (3.5-5.0); Alkaline Phosphatase 125 U/L (39-117); Anion Gap 12 (12-20); Aspartate Amino Transferase 19 U/L (5-31); Bilirubin Total 0.3 mg/dL (0.0-1.0); Blood Urea Nitrogen 12 mg/dL (9-16); Calcium 10.2 mg/dL (8.4-10.2); Carbon Dioxide 31 mmol/L (22-29); Chloride 102 mmol/L (96-108); Cholesterol 166 mg/dL (<200); Estimated Glomerular Filt Rate > 60; Glucose Random 74 mg/dL (60-115); HDL Cholesterol 45 mg/dL (>40); LDL Cholesterol Calculated 84 mg/dL (<100); Potassium 3.8 mmol/L (3.3-5.1); Sodium 141 mmol/L (135-145); Total Protein 7.6 g/dL (6.5-8.0); Triglycerides 187 mg/dL (<150)
== END 2023-05-01 16:02 | disposition home or self-care (01) ==
LOC: HO.LAB 16:01
PROVIDERS: PCP Internal Medicine; Visit Provider Internal Medicine
DX: E11.9 Type 2 diabetes mellitus without complications (principal); E78.00 Pure hypercholesterolemia, unspecified; I10 Essential (primary) hypertension
CPT/HCPCS: 36415; 80053; 80061; 83036

== ENCOUNTER → 2023-05-30 13:45 | Outpatient (BNV) | payer OTHER, SELFPAY | PROVIDERS: PCP Internal Medicine; Visit Provider Radiology Diagnostic Radiology | DX: Z12.31 Encounter for screening mammogram for malignant neoplasm of breast (principal) | CPT/HCPCS: 77063; 77067 ==

== ENCOUNTER 2023-05-30 13:53 | Outpatient (REF) | payer OTHER, SELFPAY | END 2023-05-30 13:54 | disposition home or self-care (01) | LOC: HO.MAMMO 13:53 | PROVIDERS: PCP Internal Medicine; Visit Provider Internal Medicine | DX: Z12.31 Encounter for screening mammogram for malignant neoplasm of breast (principal) | CPT/HCPCS: 77063; 77067 ==

== ENCOUNTER 2023-07-27 08:38 | Outpatient (REF) | payer OTHER, SELFPAY ==
[2023-07-27 10:27] LABS: Estimated Average Glucose 189 mg/dL; Hemoglobin A1c % 8.2 % (<6.0)
[2023-07-27 11:05] LABS: Alanine Aminotransferase 20 U/L (0-31); Albumin Level 4.3 g/dL (3.5-5.0); Alkaline Phosphatase 162 U/L (39-117); Anion Gap 13 (12-20); Aspartate Amino Transferase 14 U/L (5-31); Bilirubin Total 0.5 mg/dL (0.0-1.0); Blood Urea Nitrogen 14 mg/dL (9-16); Carbon Dioxide 29 mmol/L (22-29); Chloride 103 mmol/L (96-108); Estimated Glomerular Filt Rate > 60; Glucose Random 164 mg/dL (60-115); Potassium 4.3 mmol/L (3.3-5.1); Sodium 141 mmol/L (135-145); Total Protein 7.9 g/dL (6.5-8.0)
== END 2023-07-27 08:39 | disposition home or self-care (01) ==
LOC: HO.LAB 08:38
PROVIDERS: PCP Internal Medicine; Visit Provider Internal Medicine
DX: E11.9 Type 2 diabetes mellitus without complications (principal)
CPT/HCPCS: 36415; 80053; 83036

== ENCOUNTER 2023-08-23 10:50 | Outpatient (AMB) | payer OTHER, SELFPAY ==
--- NOTE | 2023-08-23 11:25 | MHC.OFFVIS ---
Intake Visit Reasons: New Pt - left shoulder pain Allergies prochlorperazine [Compazine] Allergy (Unknown, Verified 10/12/20 10:08) Swelling HPI HPI New Pt - left shoulder pain: Details: 57-year-old female who presents to the office today for evaluation of left shoulder pain for 2 months. She states she has pain in her left shoulder that is aggravated with sleeping, lifting, grabbing items and twisting motions. She also c/o numbness and tingling in her shoulder. She has a history of diabetes. Her sugar level is well controlled. [facility] Medical History (Updated 08/23/23 @ 11:27 by Damon Tovar PA-C) GERD (gastroesophageal reflux disease) Anemia Arm pain Asthma Diabetes Migraine Surgical History (Updated 09/15/20 @ 14:45 by Herminia Navarro RN) No significant past surgical history Family History Mother No problems noted. Father No problems noted. 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 Review of Systems Const All systems reviewed & are unremarkable except as noted in HPI and below Physical Exam Const General: cooperative, healthy appearing, comfortable, no acute distress, well developed and alert Orientation/consciousness: patient oriented x3 HEENT Head: Yes normal to inspection, Yes normocephalic and Yes atraumatic Eyes General: appearance normal, both eyes and all related structures Resp Effort & Inspection: normal respiratory effort and able to speak in complete sentences Cardio Rate: regular rate Peripheral pulses: Peripheral pulses 2+ throughout GI Palpation (GI): Soft to palpation Skin Lesions: no lesions Rashes: no rashes Neuro General: patient oriented x3 Extrem Other: Left shoulder normal to inspection. Tenderness over the bicipital groove and along the deltoid region of the shoulder. Forward flexion to 175, external rotation to 90, internal rotation to S1. 5/5 RTC strength. Negative Martin and cross body abduction. NVI. Office Procedures Joint Injection/Drain Joint Injection/Drain Primary Site: left shoulder Prep: site was prepped using aseptic technique, ethochloride spray was applied and injection warnings given Injected: 40 mg of, DepoMedrol, with 8 mL of, 1% plain lidocaine and in the subcromial space Approach Used: posterolateral Procedure: The patient tolerated the procedure well and there was some relief with the local anesthesia Coding 26904 - Glenohumeral/Tronchanteric Bursa/Intraarticular Procedure code (CPT) selection complete Tendon Injection Tendon Injection All charges added?: Procedure code (CPT) selection complete Assessment & Plan Assessment & Plan (1) Tendonitis of left rotator cuff: Code(s): M75.82 - Other shoulder lesions, left shoulder Category: Medical Plan We discussed options today which include steroid injection. They did consent to move forward with the left shoulder injection, which was tolerated well. I recommended rest, ice and elevation and OTC anti-inflammatories PRN for discomfort. If symptoms persist or worsens over the next 6-8 weeks, patient will contact the office, otherwise follow-up as needed. Orders: Orders XR shoulder LT min 2V Today Kimberly Salgado PA-C M25.519 - Pain in unspecified shoulder PT Evaluation and Treatment Today Damon Tovar PA-C M75.82 - Other shoulder lesions, left shoulder Patient Instructions: Scribed for Damon Tovar PA-C, by Darren Jin medical service technician, on 08/23/2023 at 11:00 AM EST.? I, Damon Tovar PA-C, have personally reviewed and agree with the information entered by the scribe. Coding Level of Care Code New Pt Level 3 (74948) Diagnoses Tendonitis of left rotator cuff M75.82 CPT Codes Coding - Joint 7: 79201 - Glenohumeral/Tronchanteric Bursa/Intraarticular ([id number])
== END 2023-08-23 12:21 | disposition home or self-care (01) ==
PROVIDERS: PCP Internal Medicine; Visit Provider Physician Assistant
DX: M75.82 Other shoulder lesions, left shoulder (principal)
CPT/HCPCS: 20610; 99203

== ENCOUNTER 2023-08-23 14:30 | Outpatient (REF) | payer OTHER, SELFPAY ==
--- NOTE | ~2023-08-23 | XR_ITS ---
EXAMINATION: XR SHOULDER, LEFT CLINICAL INFORMATION: Pain in left shoulder COMPARISON: None available. TECHNIQUE: AP external rotation, Grashey, scapular Y, and axillary views of the left shoulder. FINDINGS: The bones and soft tissues are normal. No fracture. Glenohumeral and acromioclavicular alignment is anatomic with normal joint space. No abnormal soft tissue calcifications. XR/XR shoulder LT min 2V IMPRESSION: Normal left shoulder.
== END 2023-08-23 14:31 | disposition home or self-care (01) ==
LOC: HO.HOSX 14:30
PROVIDERS: Visit Provider Physician Assistant
DX: M75.82 Other shoulder lesions, left shoulder (principal)
CPT/HCPCS: 20610; 73030; 99202; J1010

== ENCOUNTER 2023-10-28 08:17 | Outpatient (REF) | payer OTHER, SELFPAY ==
[2023-10-28 09:27] LABS: Estimated Average Glucose 151 mg/dL; Hemoglobin A1c % 6.9 % (<6.0)
[2023-10-28 09:59] LABS: Alanine Aminotransferase 17 U/L (0-31); Albumin Level 4.1 g/dL (3.5-5.0); Alkaline Phosphatase 145 U/L (39-117); Anion Gap 11 (12-20); Aspartate Amino Transferase 14 U/L (5-31); Bilirubin Total 0.5 mg/dL (0.0-1.0); Blood Urea Nitrogen 12 mg/dL (9-16); Calcium 9.5 mg/dL (8.4-10.2); Carbon Dioxide 26 mmol/L (22-29); Chloride 107 mmol/L (96-108); Cholesterol 122 mg/dL (<200); Estimated Glomerular Filt Rate > 60; Glucose Random 116 mg/dL (60-115); HDL Cholesterol 41 mg/dL (>40); LDL Cholesterol Calculated 59 mg/dL (<100); Sodium 140 mmol/L (135-145); Total Protein 7.2 g/dL (6.5-8.0); Triglycerides 113 mg/dL (<150)
== END 2023-10-28 08:18 | disposition home or self-care (01) ==
LOC: HO.LAB 08:17
PROVIDERS: PCP Internal Medicine; Visit Provider Internal Medicine
DX: E11.65 Type 2 diabetes mellitus with hyperglycemia (principal); E78.00 Pure hypercholesterolemia, unspecified; I10 Essential (primary) hypertension; M75.42 Impingement syndrome of left shoulder
CPT/HCPCS: 36415; 80053; 80061; 83036

== ENCOUNTER 2023-11-12 11:00 | Outpatient (RCR) | payer OTHER, SELFPAY ==
--- NOTE | 2023-11-05 13:32 | MHC.PT.EP ---
[facility] [place] Office [place] Office [place] Office [address] [phone] F: [phone] F: [phone] F: [phone] F: [phone] Physical Therapy Plan of Care Date of Evaluation: 11/05/23 Date of Surgery: Diagnosis: LEFT ROTATOR CUFF TENDONITIS Assessment: 58 YO LEFT HANDED FEMALE REF TO PT FOR Lt RTC TENDONITIS x 9 MONTHS. 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 SHE HAD A Lt SH INJECTION IN AUGUST 2023 W/O SIGNIF RELIEF. OBJECTIVE FINDINGS: LIMITED ROM Lt SH, (+) STRENGTH DEFICITS IN SCAPULAR AND POST RC MM, (+) Lt NEER'S SIGN, AND FLUCTUATING PAIN/ TTP IN Lt SUBACROMIAL AND Lt BICIPITAL GROOVE. FUNCTIONALLY, THE Pt IS LIMITED W ALL ADLs REQUIRING REACHING, LIFTING, CARRYING-> FUNCTIONAL DEMANDS W Lt UE. THE Pt IS A GOOD PT CANDIDATE, TO ADDRESS THE ABOVE, ULTIMATELY, PAIN MGMT TO ALLOW RTW IN . DISCUSSED POC W THE Pt AND SHE AGREES WITH THE POC. Frequency and Duration: The patient will be seen 2 x WK x 5 WKS Short Term Goals: *DECR Lt SH PAIN TO 3-4/10 *Pt INDEP W SELF CORRECT POSTURE TO REDUCE ANT GH STRESS *INITIATE HEP *IMPROVE ROM Lt SH Fci Goals: *Pt INDEP W HEP AND SELF-SX MGMT TECHN *Pt RESUME ADLs AND WORK TASKS EVIDENT WITH IMPROVED SPADI SCORE (AT INITIAL EVAL 127/130) *IMPROVE Lt SH COMPLEX STRENGTH BY 1 GRADE *(-) Lt NEER'S SIGN Treatment Plan: Modalities to reduce pain, spasms and effusion. Manual therapy to restore motion and function. Therapeutic exercise to improve strength and flexibility. Neuromuscular re-education for posture and balance. Therapeutic activities to return to functional activities of daily living. Electronically signed by: NAVID MORENO,PT Please sign and return to therapist. Thank you for your referral.
--- NOTE | 2023-11-29 10:56 | MHC.PT.DC ---
[facility] [place] Office [place] Office [place] Office [address] Yelena Phillips [address] [phone] F: [phone] F: [phone] F: [phone] F: [phone] Physical Therapy Discharge Report Diagnosis: LEFT ROTATOR CUFF TENDONITIS Date of Surgery: Date of Evaluation: 11/05/23 Date of Discharge: 11/29/23 Treatments to Date: 3 Cancellations to Date: 2 No Shows to Date: 3 Discharge Status: Improved Function Patient Elected to Stop Visit Non-compliance Discharge Summary: THE Pt HAD POOR ATTENDANCE FOR LAST SCHED PT APPTS.. SHE HAS A THOROUGH HEP AND AT LAST ATTENDED PT APPT, HER SUBJECTIVE PAIN HAD DECR Electronically signed by: NAVID MORENO,PT Please sign and return to therapist. Thank you for your referral.
== END 2023-11-29 10:57 | disposition home or self-care (01) ==
LOC: HO.PT 11:00
PROVIDERS: PCP Internal Medicine; Visit Provider Physician Assistant
DX: M75.82 Other shoulder lesions, left shoulder (principal)
CPT/HCPCS: 97110; 97162; 97535

== ENCOUNTER 2024-01-23 07:18 | Outpatient (REF) | payer OTHER, SELFPAY ==
[2024-01-23 08:09] LABS: Estimated Average Glucose 134 mg/dL; Hemoglobin A1C 134.2196 umol/L; Hemoglobin A1c % 6.3 % (<6.0); Total Hemoglobin (HGBA1C) 2930.2979 umol/L
[2024-01-23 08:37] LABS: Alanine Aminotransferase 18 U/L (0-31); Albumin Level 4.3 g/dL (3.5-5.0); Alkaline Phosphatase 140 U/L (39-117); Anion Gap 12 (12-20); Aspartate Amino Transferase 16 U/L (5-31); Bilirubin Total 0.4 mg/dL (0.0-1.0); Blood Urea Nitrogen 16 mg/dL (9-16); Carbon Dioxide 28 mmol/L (22-29); Chloride 105 mmol/L (96-108); Estimated Glomerular Filt Rate > 60; Glucose Random 110 mg/dL (60-115); Potassium 4.2 mmol/L (3.3-5.1); Sodium 141 mmol/L (135-145); Total Protein 7.7 g/dL (6.5-8.0)
[2024-01-23 09:16] LABS: Creatinine Urine 87.88 mg/dL; Microalbum/Creatinine Ratio Ur 6.8 ug/mg cr (<30)
== END 2024-01-23 07:19 | disposition home or self-care (01) ==
LOC: HO.LAB 07:18
PROVIDERS: PCP Internal Medicine; Visit Provider Internal Medicine
DX: E11.9 Type 2 diabetes mellitus without complications (principal); E78.00 Pure hypercholesterolemia, unspecified; M67.814 Other specified disorders of tendon, left shoulder
CPT/HCPCS: 36415; 80053; 82043; 82570; 83036

== ENCOUNTER 2024-02-21 08:10 | Outpatient (AMB) | payer MEDICAID, SELFPAY ==
--- NOTE | 2024-02-21 08:28 | MHC.OFFVIS ---
Vital Signs 02/21/24 08:32 Height 5 ft 4 in Weight 156 lb BMI 26.8 Intake Visit Reasons: OV-Left shoulder pain/limited ROM Intake Note: Lizbet a 58 year old left hand dominant female who presents today for a follow up of left shoulder, last injection 08/23/23. Patient reports she attended PT with no relief. Her pain has gotten worse. 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 She has difficulty with AODL such as dressing herself. Difficulty sleeping, states waking up in pain. No relief with naproxen or ibuprofen. Allergies prochlorperazine [Compazine] Allergy (Unknown, Verified 02/21/24 08:44) Swelling Medication List - Last Reconciled 02/21/24 by Damon Tovar PA-C albuterol sulfate 90 mcg/actuation (ProAir HFA) 2 puffs PO Q4H PRN amitriptyline 1 tab PO BEDTIME atorvastatin 1 tab PO QPM tdnuwlyikh-ikepoepxphipv-pvgv 50-325-40 mg 1 tab PO Q6H PRN ferrous sulfate 1 tab PO DAILY glipizide ER 1 tab PO BID ibuprofen 400 mg PO Q6H PRN metformin 2 tabs PO BID naproxen 500 mg PO BID PRN omeprazole 1 cap PO QAM sitagliptin phosphate (Januvia) 1 tab PO DAILY HPI HPI OV-Left shoulder pain/limited ROM: Details: 58-year-old female who returns to the office today for a follow-up of left shoulder pain. She had her last injection on 08/23/23 that provided her relief for a couple of days. She currently states she has worsening pain, weakness and limited ROM in her shoulder that is aggravated AODL, ROM and at night. She has tried physical therapy in the past for 3 weeks. She finds no relief with Motrin, ibuprofen and naproxen. [facility] Medical History (Updated 08/23/23 @ 11:27 by Damon Tovar PA-C) GERD (gastroesophageal reflux disease) Anemia Arm pain Asthma Diabetes Migraine Surgical History No significant past surgical history Family History Mother No problems noted. Father No problems noted. 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 Review of Systems Const All systems reviewed & are unremarkable except as noted in HPI and below Physical Exam Vital Signs: BMI result Body Mass Index 26.8 Const General: cooperative, healthy appearing, comfortable, no acute distress, well developed and alert Orientation/consciousness: patient oriented x3 HEENT Head: Yes normal to inspection, Yes normocephalic and Yes atraumatic Eyes General: appearance normal, both eyes and all related structures Resp Effort & Inspection: normal respiratory effort and able to speak in complete sentences Cardio Rate: regular rate Peripheral pulses: Peripheral pulses 2+ throughout GI Palpation (GI): Soft to palpation Skin Lesions: no lesions Rashes: no rashes Neuro General: patient oriented x3 Extrem Other: Left shoulder normal to inspection. Tenderness over the bicipital groove and along the deltoid region of the shoulder. Forward flexion to 175, external rotation to 90, internal rotation to S1. 5/5 RTC strength. Negative Martin and cross body abduction. NVI. Assessment & Plan Assessment & Plan (1) Tendonitis of left rotator cuff: Code(s): M75.82 - Other shoulder lesions, left shoulder Category: Medical Plan An MRI of the left shoulder was ordered to further evaluate the integrity of RTC given her continued pain and failure with physical therapy. I will see her back once the scan is complete. Orders: Orders MR shoulder LT wo con Today S46.009A - Unspecified injury of muscle(s) and tendon(s) of the rotator cuff of unspecified shoulder, initial encounter Patient Instructions: Scribed for Damon Tovar PA-C, by Darren Jin medical claims assistant, on 02/21/2024 at 8:15 AM EST.? I, Damon Tovar PA-C, have personally reviewed and agree with the information entered by the scribe. Coding Level of Care Code Est Pt Level 3 (19186) Complex EM visit Add On G2211 Diagnoses Tendonitis of left rotator cuff M75.82
[2024-02-21 08:32] VITALS: BMI 26.8
== END 2024-02-21 08:53 | disposition home or self-care (01) ==
PROVIDERS: PCP Internal Medicine; Visit Provider Physician Assistant
DX: M75.82 Other shoulder lesions, left shoulder (principal)
CPT/HCPCS: 99213

== ENCOUNTER → 2024-02-21 08:10 | Outpatient (BNVA) | payer MEDICAID, SELFPAY | PROVIDERS: PCP Internal Medicine; Visit Provider Physician Assistant | DX: M75.82 Other shoulder lesions, left shoulder (principal) | CPT/HCPCS: 99212 ==

== ENCOUNTER 2024-03-17 10:53 | Outpatient (REF) | payer OTHER, SELFPAY ==
--- OUTSIDE RECORDS SUMMARY | 2024-03-18 20:27 | XMS_ITS | Patient Health Record ---
Author Organization [facility] Address [address] [place] [id number] Care Team Providers Care Senior Electrical Design Engineer Name Role Phone Eleazar Viramontes MD Primary Care Provider Pedro Luis Mckeon Unavailable [phone] ALLERGIES Allergen (clinical drug ingredient) Drug/Non Drug Allergy documented on EMR Reaction Allergy Type Onset Date Status Compazine Unknown Drug Allergy Active REASON FOR REFERRAL No Information MEDICATIONS Medication SIG (Take, Route, Frequency, Duration) Notes Start Date End Date Status Dulcolax (colon prep) 5 MG take at 3:00 p.m and 7:00p.m. Orally two tablets twice a day for one day for 1 day 08/30/2020 Active Ibuprofen 200 MG 2 Orally QPM Active MiraLax (colon prep) 8.3 ounce ((238) grams mixed with Gatorade or Crystal Light orally begin at 5:00 p.m. the day before the procedure for 1 day 08/30/2020 Active ProAir HFA 108 (90 Base) MCG/ACT 1 puff as needed Inhalation every 4 hrs Active Iron (Ferrous Sulfate) 325 (65 Fe) MG 1 tablet Orally Once a day for 30 day(s) Active Omeprazole 20 MG 1 capsule 30 minutes before morning meal Orally prn Active Amitriptyline HCl 10 MG TAKE 1 TABLET BY MOUTH EVERY DAY AT BEDTIME NEEDED Oral for 90 Active glipiZIDE 10 MG 1 tablet 30 minutes before breakfast Orally twice a day Active metFORMIN HCl 500 MG 1 tablet with a broderick l Orally twice a day Active IMMUNIZATIONS Vaccine Route Administration Date Status Comme nts Influenza Unknown 12/07/2018 Administered SOCIAL HISTORY Tobacco Use: Social History Observation Description Date Details (start date - stop date) Never Smoker NA - NA Sex Assigned At : Social History Observation Description Sex Assigned At Unknown Tobacco Use/Smoking Question Answer Notes Patient is a nonsmoker Alcohol Screen Question Answer Notes Did you have a drink containing alcohol in the p ast year? No Points 0 Interpretation Negative PROBLEMS Problem Type ICD Code Onset Dates Problem Status W/U Status Risk SNOMED Code Notes Problem Gastroesophageal reflux disease, unspecified whether esophagitis present (K21.9) Active confirmed 574775317 Problem Iron deficiency anemia, unspecified iron deficiency anemia type (D50.9) Active confirmed 06653772 Problem Encounter for screening for malignant neoplasm of colon (Z12.11) Active confirmed 369001964 Problem Epigastric abdominal pain (R10.13) Active confirmed 46719662 Problem 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) Active confirmed Diverticular disease of colon (503046987) Problem Esophageal reflux (K21.9) Active confirmed Esophageal reflux (363328344) PLAN OF TREATMENT Pending Test Test Name Order Date US ABD 08/30/2020 Future Test Test Name Order Date UPPER GI ENDOSCOPY 08/30/2020 COLONOSCOPY 08/30/2020 Insurance Providers Payer Name Payer Address Payer Phone Subscriber Number Group Number Insured Name Patient Relationship to Insured Coverage Start Date Coverage End Date [facility] [address] [address] [place], [place] [id number] SARAH RAMÍREZ Self - patient is the insured MEDICAL (GENERAL) HISTORY Medical History History ICD Code NIDDM Asthma--uses inhaler PRN Denies ND,CVA,renal disease Anemia-heavy menses Surgical History Surgery Date(Month/Year)
== END 2024-03-17 10:54 | disposition home or self-care (01) ==
LOC: HO.MRI 10:53
PROVIDERS: PCP Internal Medicine; Visit Provider Physician Assistant
DX: S46.002A Unspecified injury of muscle(s) and tendon(s) of the rotator cuff of left shoulder, initial encounter (principal)
CPT/HCPCS: 73221

== ENCOUNTER 2024-04-22 09:04 | Outpatient (REF) | payer OTHER, SELFPAY ==
[2024-04-22 10:28] LABS: Estimated Average Glucose 137 mg/dL; Hemoglobin A1C 130.4358 umol/L; Hemoglobin A1c % 6.4 % (<6.0); Total Hemoglobin (HGBA1C) 2804.8416 umol/L
[2024-04-22 10:31] LABS: Alanine Aminotransferase 25 U/L (0-31); Albumin Level 4.3 g/dL (3.5-5.0); Alkaline Phosphatase 148 U/L (39-117); Anion Gap 9 (12-20); Aspartate Amino Transferase 19 U/L (5-31); Bilirubin Total 0.4 mg/dL (0.0-1.0); Blood Urea Nitrogen 17 mg/dL (9-16); Calcium 9.4 mg/dL (8.4-10.2); Carbon Dioxide 27 mmol/L (22-29); Chloride 110 mmol/L (96-108); Estimated Glomerular Filt Rate > 60; Glucose Random 110 mg/dL (60-115); Potassium 4.2 mmol/L (3.3-5.1); Sodium 142 mmol/L (135-145); Total Protein 7.8 g/dL (6.5-8.0)
== END 2024-04-22 09:05 | disposition home or self-care (01) ==
LOC: HO.LAB 09:04
PROVIDERS: PCP Internal Medicine; Visit Provider Internal Medicine
DX: Z00.00 Encounter for general adult medical examination without abnormal findings (principal); E11.9 Type 2 diabetes mellitus without complications; E78.00 Pure hypercholesterolemia, unspecified; I10 Essential (primary) hypertension; M67.814 Other specified disorders of tendon, left shoulder; M75.82 Other shoulder lesions, left shoulder
CPT/HCPCS: 36415; 80053; 83036; 99212

== ENCOUNTER 2024-04-22 11:25 | Outpatient (AMB) | payer OTHER, SELFPAY ==
--- NOTE | 2024-04-22 11:27 | MHC.OFFVIS ---
Vital Signs 04/22/24 11:32 Height 5 ft 4 in Weight 156 lb BMI 26.8 Intake Visit Reasons: ov- MRI review of lt shoulder Intake Note: Lizbet a 58 year old left hand dominant female who presents today for an MRI review of left shoulder. Patient reports throbbing pain in her shoulder that has moved down towards her forearm. States her pain wakes her up at night. Finds little relief with celebrex. Allergies prochlorperazine [Compazine] Allergy (Unknown, Verified 04/22/24 11:32) Swelling Medication List - Last Reconciled 04/22/24 by Damon Tovar PA-C albuterol sulfate 90 mcg/actuation (ProAir HFA) 2 puffs PO Q4H PRN atorvastatin 1 tab PO QPM celecoxib (Celebrex) 200 mg PO BID 30 days dulaglutide (Trulicity) mg subcut empagliflozin (Jardiance) 25 mg PO DAILY ferrous sulfate 1 tab PO DAILY glipizide ER 1 tab PO BID ibuprofen 400 mg PO Q6H PRN metformin 2 tabs PO BID naproxen 500 mg PO BID PRN omeprazole 1 cap PO QAM HPI HPI ov- MRI review of lt shoulder: Details: 58-year-old female returns to the office today follow-up left shoulder after MRI. She states she continues to have significant pain in the left shoulder with lifting and reaching. She has had physical therapy and steroid injections with minimal relief. She states the pain is significantly impacting her ability to perform daily activities. [facility] Medical History (Updated 08/23/23 @ 11:27 by Damon Tovar PA-C) GERD (gastroesophageal reflux disease) Anemia Arm pain Asthma Diabetes Migraine Surgical History No significant past surgical history Family History Mother No problems noted. Father No problems noted. 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 Review of Systems Const All systems reviewed & are unremarkable except as noted in HPI and below Physical Exam Vital Signs: BMI result Body Mass Index 26.8 Const General: cooperative, healthy appearing, comfortable, no acute distress, well developed and alert Orientation/consciousness: patient oriented x3 HEENT Head: Yes normal to inspection, Yes normocephalic and Yes atraumatic Eyes General: appearance normal, both eyes and all related structures Resp Effort & Inspection: normal respiratory effort and able to speak in complete sentences Cardio Rate: regular rate Peripheral pulses: Peripheral pulses 2+ throughout GI Palpation (GI): Soft to palpation Skin Lesions: no lesions Rashes: no rashes Neuro General: patient oriented x3 Extrem Other: Left shoulder normal to inspection. Tenderness over the bicipital groove and along the deltoid region of the shoulder. Mild discomfort with flexion to 95 degrees. Pain with rotator cuff strength testing Results Reviewed Results Reviewed: MR shoulder LT wo con IMPRESSION: 1. Mild supraspinatus tendinosis. Minimal undersurface partial tear of the subscapularis tendon insertion. 2. Mild subacromial subdeltoid bursitis. 3. Minimal acromioclavicular osteoarthritis. Assessment & Plan Assessment & Plan (1) Tendonitis of left rotator cuff: Code(s): M75.82 - Other shoulder lesions, left shoulder Category: Medical Plan: Given her failed conservative treatment measures I recommend she see Dr. Smith to discuss further treatment options whether or not surgical intervention would be warranted. Coding Level of Care Code Est Pt Level 3 (37211) Complex EM visit Add On G2211 Diagnoses Tendonitis of left rotator cuff M75.82
[2024-04-22 11:32] VITALS: BMI 26.8
== END 2024-04-22 11:45 | disposition home or self-care (01) ==
PROVIDERS: PCP Internal Medicine; Visit Provider Physician Assistant
DX: M75.82 Other shoulder lesions, left shoulder (principal)
CPT/HCPCS: 99213; G2211

== ENCOUNTER 2024-06-04 11:13 | Outpatient (AMB) | payer OTHER, SELFPAY ==
[2024-06-04 11:18] VITALS: BMI 26.8
--- NOTE | 2024-06-04 11:18 | A.OFFVIS_ITS ---
Vital Signs 06/04/24 11:18 Height 5 ft 4 in Weight 156 lb BMI 26.8 Intake Visit Reasons: OV - Left Shoulder MRI Review / Discuss Surgery Intake Note: Lizbet is a 58 year old left hand dominant female who presents today for a Left shoulder MRI review. She was last seen with Damon Tovar who referred her to discuss possible surgical interventions. Patient has tried and failed physical therapy. No hx of injections. Allergies prochlorperazine [Compazine] Allergy (Unknown, Verified 04/22/24 11:32) Swelling HPI HPI OV - Left Shoulder MRI Review / Discuss Surgery: Details: Lizbet is a 58 year old left hand dominant female who presents today for a Left shoulder MRI review. She was last seen with Damon Tovar who referred her to discuss possible surgical interventions. Patient has tried and failed physical therapy. No hx of injections. She does state that she is better than prior and feels overall like she is improving with more motion and less pain [facility] Medical History (Updated 06/04/24 @ 13:53 by Bryan Smith MD) GERD (gastroesophageal reflux disease) Anemia Arm pain Asthma Diabetes Migraine Surgical History No significant past surgical history Family History Mother No problems noted. Father No problems noted. 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 Active abduction to 90 degrees. A negative empty can. Mildly positive Martin/ Neer. Results Reviewed Results Reviewed: I personally reviewed the MR images. IMPRESSION: 1. Mild supraspinatus tendinosis. Minimal undersurface partial tear of the subscapularis tendon insertion. 2. Mild subacromial subdeltoid bursitis. 3. Minimal acromioclavicular osteoarthritis. Assessment & Plan Assessment & Plan (1) Adhesive capsulitis of shoulder: Code(s): M75.00 - Adhesive capsulitis of unspecified shoulder Category: Medical Plan: This is a 58-year-old woman with left shoulder pain. She is much improved from prior. She has more motion about still slightly limited in external rotation. Her MRIs unremarkable. It does appear that she was suffering from adhesive capsulitis and has been improving. I reviewed with her the importance of maintaining strong periscapular muscles. She expressed understanding and we will see me if she has a deterioration in her condition but, at this time, she is doing well. Coding Level of Care Code Est Pt Level 3 (27663) Diagnoses Adhesive capsulitis of shoulder M75.00
--- OUTSIDE RECORDS SUMMARY | 2024-06-04 13:32 | XMS_ITS | Clinical Summary ---
Author Organization [facility] Address [address] [place] [address] [address] [place] [address] Care Team Providers Care Strapping Machine Operator Name Role Phone Unavailable Primary Care Provider Unavailabl e Social History Tobacco Use Types Packs/Day Years Used Date Smoking Tobacco: Never Assessed Comments Unknown Sex and Gender Information Value Date Recorded Sex Assigned at Female 02/05/2022 10:14 AM EDT Legal Sex Female 10:14 AM EDT Gender Identity Not on file Sexual Orientation Not on file Plan of Treatment Health Maintenance Due Date Last Done Comments CT Colonography 1967 Colonoscopy 1967 Colorectal Cancer Screening 1967 Depression Screening 1967 FIT DNA/Cologuard 1967 FIT 1967 FOBT 1967 Sigmoidoscopy 1967 Alcohol/Substance Use Screening 1979 Tobacco Screening 1979 DTaP/Tdap/Td Vaccines (1 - Tdap) 10/22/1986 Hepatitis B Vaccines (1 of 3 - 19+ 3-dose series) 10/22/1986 Pap Smear 10/22/1988 Cervical Cancer Screening 10/22/1997 HPV/Cotest 10/22/1997 Mammogram 2007 Pneumococcal Vaccine: 50+ Ye ars (1 of 1 - PCV) 10/22/2017 Zoster Vaccines (1 of 2) 10/22/2017 COVID-19 Vaccine ( - 2023-2 5 season) 2023 Influenza Vaccine (#1) 2023 RSV Patients and Pa tients Aged 60 years or older (1 - 1-dose 75+ series) 10/22/2042 HIB Vaccines Aged Out No longer eligi ble based on patient's age to complete this topic HPV Vaccines Aged Out No longer eligi ble based on patient's age to complete this topic Hepatitis A Vaccines Aged Out No long er eligible based on patient's age to complete this topic IPV Vaccines Aged Out No longer eligi ble based on patient's age to complete this topic Meningococcal Vaccine Aged Out No omar gino eligible based on patient's age to complete this topic Pneumococcal Vaccine: Pediat rics (0 to 5 Years) and At-Risk Patients (6 to 49) Years) Aged Out No longer eligible b ased on patient's age to complete this topic RSV under 20 months Aged Out No longe r eligible based on patient's age to complete this topic Rotavirus Vaccines Aged Out No longer eligible based on patient's age to complete this topic
--- OUTSIDE RECORDS SUMMARY | 2024-06-04 13:32 | XMS_ITS | Clinical Summary ---
Author Organization [facility] Address [address] [place] [address] Phone Care Team Providers Care Letter Of Credit Clerk Name Role Phone Anisha Trimble MD Primary Care Provider [phone] Surgical History Surgery Date Site/Laterality Comments CARPAL TUNNEL RELEASE 05/17/2021 Left PROCEDURE: [place] NEUROPLASTY &/TRANSPOS MEDIAN NRV CARPAL TUNNE; COMMENT: Left endoscopic carpal tunnel release with Dr. Rojas Medical History Medical History Date Comments Diabetes mellitus type 2, co ntrolled, with complications (CMS/HCC) DX:Diabetes mellitus type 2, controlled, with complications (HCC) Asthma DX:Asthma Social History Tobacco Use Types Packs/Day Years Used Date Smoking Tobacco: Never Smokeless Tobacco: Never Alcohol Use Standard Drinks/Week Comments Never 0 (1 standard drink = 0.6 oz pur e alcohol) Comments Unknown Sex and Gender Information Value Date Recorded Sex Assigned at Not on file Legal Sex Female 9:24 AM EST Gender Identity Not on file Sexual Orientation Not on file Obstetrics History Last Filed Vital Signs Vital Sign Reading Time Taken Comments Blood Pressure 120/72 07/14/2021 2:37 PM EDT Sit ting L Arm Pulse 93 07/14/2021 2:37 PM EDT Temperature - - Respiratory Rate - - Oxygen Saturation - - Inhaled Oxygen Concentration - - Weight 73.9 kg (163 lb) 07/14/2021 2:37 PM EDT Height 162.6 cm (5' 4 ) 07/14/2021 2:37 PM EDT Body Mass Index 27.98 07/14/2021 2:37 PM EDT Plan of Treatment Health Maintenance Due Date Last Done Comments Breast Cancer Screening 1967 DTaP,Tdap,and Td Vaccines (1 - Tdap) 10/22/1986 Hepatitis B Vaccines (1 of 3 - 19+ 3-dose series) 10/22/1986 Cervical Cancer Screening: P ap Smear 10/22/1988 Pneumococcal Vaccine: 50+ Ye ars (1 of 1 - PCV) 10/22/2017 Zoster Vaccines (1 of 2) 10/22/2017 Colorectal Cancer Screening: Colonoscopy 03/05/2022 Depression Screening 03/05/2022 HIV Screening 03/05/2022 Hepatitis C Screening 03/05/2022 Social Influencers of Health Screening 03/05/2022 COVID-19 Vaccine (1 - 2023-2 5 season) 2023 Influenza Vaccine (#1) 2023 HIB Vaccines Aged Out No longer eligi [...] on patient's age to complete this topic MMR Vaccines Aged Out No longer eligi ble based on patient's age to complete this topic Meningococcal ACWY Vaccine Aged Out N o longer eligible based on patient's age to complete this topic Meningococcal B Vacine Aged Out No lo nger eligible based on patient's age to complete this topic Pneumococcal Vaccine: Pediat rics (0 to 5 Years) and At-Risk Patients (6 to 64 Years) Aged Out No longer eligible b ased on patient's age to complete this topic RSV Immunization Patients Un jhonatan 20 months Aged Out No longer eligible b ased on patient's age to complete this topic Varicella Vaccines Aged Out No longer eligible based on patient's age to complete this topic Insurance PLAN Care Teams Letter Of Credit Clerk Relationship Specialty Start Date End Date Anisha Trimble MD [address] [place] [address] [place] [address] PCP - General Internal Medicine 03/03/24
--- OUTSIDE RECORDS SUMMARY | 2024-06-04 13:32 | XMS_ITS | Encounter Summary ---
Author Organization [facility] Address [address] [place] [address] 7 [place] [address] Care Team Providers Care Rn Referral Name Role Phone Unavailable Primary Care Provider Unavailabl e Reason for Visit * Reason Onset Date Comments New Patient 11/21/2022 Encounter Details Date Type Department Care Team (Late st Contact Info) Description 11/21/2022 Telephone [facility] [address] [place] [address] Noel Perdomo MD [address] [place], [place] [phone] New Patient Social History Tobacco Use Types Packs/Day Years Used Date Smoking Tobacco: Never Assessed Comments Unknown Sex and Gender Information Value Date Recorded Sex Assigned at Female 02/05/2022 10:14 AM EDT Legal Sex Female 10:14 AM EDT Gender Identity Not on file Sexual Orientation Not on file documented as of this encounter Miscellaneous Notes * Telephone Encounter - Adilson Puente - 11/21/2022 3:26 PM EDT Tc to pt, to start the process of becoming a patient with facility and also to informed that we do not take insurance to please switch to [employer] C3, no answer/left Vm to call back at [phone]. documented in this encounter Plan of Treatment Not on file documented as of this encounter Visit Diagnoses Not on filedocumented in this encounter
--- OUTSIDE RECORDS SUMMARY | 2024-06-04 13:32 | XMS_ITS | Patient Health Record ---
Author Organization [facility] Address [address] [place] [address] Care Team Providers Care Clinical Nurse Occupational Medicine Name Role Phone Eleazar Viramontes MD Primary Care Provider Pedro Luis Mckeon Unavailable [phone] ALLERGIES Allergen (clinical drug ingredient) Drug/Non Drug [...] W/U Status Risk SNOMED Code Notes Problem Esophageal reflux (K21.9) Active confirmed Esophageal reflux (020763465) Problem Epigastric abdominal pain (R10.13) Active confirmed 16211261 Problem Encounter for screening for malignant neoplasm of colon (Z12.11) Active confirmed 286440942 Problem Iron deficiency anemia, unspecified iron deficiency anemia type (D50.9) Active confirmed 84245925 Problem 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) Active confirmed Diverticular disease of colon (610740207) Problem Gastroesophageal reflux disease, unspecified whether esophagitis present (K21.9) Active confirmed [id number] PLAN OF TREATMENT Pending Test Test Name Order Date US ABD 08/30/2020 Future Test Test Name Order Date UPPER GI ENDOSCOPY 08/30/2020 COLONOSCOPY 08/30/2020 Insurance Providers Payer Name Payer Address Payer Phone Subscriber Number Group Number Insured Name Patient Relationship to Insured Coverage Start Date Coverage End Date [facility] [address] [address] [place], [place] [id number] SARAH RAMÍREZ Self - patient is the insured MEDICAL (GENERAL) HISTORY Medical History History ICD Code NIDDM Asthma--uses inhaler PRN Denies [place],CVA,renal disease Anemia-heavy menses Surgical History Surgery Date(Month/Year)
== END 2024-06-04 11:43 | disposition home or self-care (01) ==
PROVIDERS: PCP Internal Medicine; Visit Provider Orthopaedic Surgery
DX: M75.00 Adhesive capsulitis of unspecified shoulder (principal)
CPT/HCPCS: 99213

== ENCOUNTER 2024-06-04 13:46 | Outpatient (REF) | payer OTHER, SELFPAY ==
--- OUTSIDE RECORDS SUMMARY | 2024-06-04 16:36 | XMS_ITS | Clinical Summary ---
Author Organization [facility] Address [address] [place] [address] Phone Care Team Providers Care Ball Holder Name Role Phone Anisha Trimble MD Primary Care Provider [phone] Surgical History Surgery Date Site/Laterality Comments CARPAL TUNNEL RELEASE 05/17/2021 Left PROCEDURE: [place] NEUR[place] &/TRANSPOS MEDIAN NRV CARPAL TUNNE; COMMENT: [...] complete this topic Insurance PLAN Care Teams Ball Holder Relationship Specialty Start Date End Date Anisha Trimble MD [address] [place] [address] [place] [address] PCP - General Internal Medicine 03/03/24
--- OUTSIDE RECORDS SUMMARY | 2024-06-04 16:36 | XMS_ITS | Encounter Summary ---
Author Organization [facility] Address [address] [place] [address] 7 [place] [address] Care Team Providers Care Customer Service And Sales Consultant Name Role Phone Unavailable Primary Care Provider Unavailabl e Reason for Visit * Reason Onset Date Comments New Patient 11/21/2022 Encounter Details Date Type Department Care Team (Late st Contact Info) Description 11/21/2022 Telephone [facility] [address] [place] [address] Noel Perdomo MD [address] [place], [place] [phone] New Patient Social History Tobacco Use Types [...] not take insurance to please switch to [email or web address] C3, no answer/left Vm to call back at [phone]. documented in this encounter Plan of Treatment Not on file documented as of this encounter Visit Diagnoses Not on filedocumented in this encounter
--- OUTSIDE RECORDS SUMMARY | 2024-06-04 16:36 | XMS_ITS | Clinical Summary ---
Author Organization [facility] Address [address] [place] [address] 7 [place] [address] Care Team Providers Care Instrument Person Name Role Phone Unavailable Primary Care Provider [...]
== END 2024-06-04 13:47 | disposition home or self-care (01) ==
LOC: HO.MAMMO 13:46
PROVIDERS: PCP Internal Medicine; Visit Provider Internal Medicine
DX: Z12.31 Encounter for screening mammogram for malignant neoplasm of breast (principal)
CPT/HCPCS: 77063; 77067

== ENCOUNTER → 2024-06-04 14:15 | Outpatient (BNV) | payer OTHER, SELFPAY | PROVIDERS: PCP Internal Medicine; Visit Provider Internal Medicine | DX: Z12.31 Encounter for screening mammogram for malignant neoplasm of breast (principal) | CPT/HCPCS: 77063; 77067 ==

== ENCOUNTER 2024-11-02 14:11 | Outpatient (REF) | payer OTHER, SELFPAY ==
--- NOTE | ~2024-11-02 | XR_ITS ---
EXAMINATION: XR HIP, LEFT CLINICAL INFORMATION: OSTEOARTHRITIS LEFT HIP COMPARISON: None available. TECHNIQUE: AP and oblique views of the left hip. FINDINGS: Mild sclerosis along the articular surface of the acetabulum and femoral head with small marginal osteophyte formation in the superior acetabulum. Mild asymmetric joint space narrowing. No acute cortical disruption or malalignment. No lytic or blastic lesions. XR/XR hip LT min 2V IMPRESSION: Mild to moderate osteoarthrosis, left hip. Electronically signed by: Tommy Sanders MD 11/02/2024 02:38 PM EDT
--- OUTSIDE RECORDS SUMMARY | 2024-11-02 14:55 | XMS_ITS | Clinical Summary ---
Author Organization [facility] Address [address] [place] [address] Phone Care Team Providers Care Take Up Supervisor Name Role Phone Anisha Trimble MD Primary Care Provider [phone] Encounters Date Type Department Care Team Description 08/26/2024 2:30 PM EDT Evaluation [address] [address] Pedro Luis Mazariegos, PT Impingement of left shoulder from Last 3 Months Surgical History Surgery Date Site/Laterality Comments CARPAL TUNNEL RELEASE 05/17/2021 Left PROCEDURE: [place] NEUROPLASTY &/TRANSPOS MEDIAN NRV CARPAL TUNNE; COMMENT: Left endoscopic carpal tunnel release with Dr. Rojas Medical History Medical History Date Comments Diabetes mellitus type 2, co ntrolled, with complications ([facility] V24, [facility] V28) DX:Diabetes mellitus type 2, controlled, with complications ([facility]) Asthma DX:Asthma Social History Tobacco Use Types [...] Last Done Comments Breast Cancer Screening 1965 Hepatitis B Vaccines (1 of 3 - 19+ 3-dose series) 10/22/1986 Cervical Cancer Screening: Pap Smear 10/22/1988 DTaP,Tdap,and Td Vaccines (2 - Td or Tdap) 01/09/2015 01/09/2005 Pneumococcal Vaccine: 50+ Years (1 of 1 - PCV) 10/22/2017 Zoster Vaccines (1 of 2) 10/22/2017 Colorectal Cancer Screening: Colonoscopy 03/05/2022 HIV Screening 03/05/2022 Hepatitis C Screening 03/05/2022 Social Influencers of Health Screening 03/05/2022 COVID-19 Vaccine ( season) 2023 02/15/2022, 10/14/2020, 09/23/2020 Depression Screening 04/08/2024 Influenza Vaccine (#1) 2024 9, 03/21/2017, 02/12/2016, Additional history exists HIB Vaccines Aged Out No longer eligi [...] age to complete this topic Meningococcal B Vaccine Aged Out No l onger eligible based on patient's age to complete this topic RSV Immunization Patients Under 20 months Aged Out No longer eligible based on patient's age to complete this topic Varicella Vaccines Aged Out No longer eligible based on patient's age to complete this topic Goals Goal Patient Goal Type Associated Problems Recent Progress Patient-Stated? Author PT LTGs General No Pedro Luis Mazariegos PT Note: Pt will increase left shoulder AROM to >75% of WNL left shoulder testing Pt will increase left shoulder strength to 5/5 throughout Pt will report no left shoulder pain for first 4 hours of work day Pt will be independent with HEP Insurance [facility] [employer] Care Teams Take Up Supervisor Relationship Specialty Start Date End Date Anisha Trimble MD [address] [place] [address] [place] [address] PCP - General Internal Medicine 03/03/24
--- OUTSIDE RECORDS SUMMARY | 2024-11-02 14:55 | XMS_ITS | Patient Health Record ---
Author Organization [facility] Address [address] [place] [address] Care Team Providers Care Shaper Operator Name Role Phone Ana M (RETIRED) Eleazar QUINTANILLA Primary Care Provide r Pedro Luis Adam Unavailable [phone] Allergies Allergen (clinical drug ingredient) Drug/Non Drug Allergy documented on EMR Reaction Allergy Type Onset Date Status Compazine Unknown Drug Allergy Active Reason For Referral No Information Medications Medication SIG (Take, Route, Frequency, Duration) Notes [...] broderick l Orally twice a day Active Immunizations Vaccine Route Administration Date Status Comme nts Influenza Unknown 12/07/2018 Administered Social History Tobacco Use: Social History Observation Description Date Details (start date - stop date) Never Smoker NA - NA Tobacco Use/Smoking Question Answer Notes Patient is a nonsmoker Alcohol Screen Question Answer Notes Did you have a drink containing alcohol in the p ast year? No Points 0 Interpretation Negative Section Notes: Nonsmoker; no sig alcohol Problems Problem Type SNOMED Code ICD Code Onset Dates Problem Status W/U Status Risk Notes Problem Esophageal reflux (333295452) Esophageal reflux (K21.9) Active confirmed Problem 27945311 Epigastric abdom inal pain (R10.13) Active confirmed Problem 055137972 Encounter for screening for malignant neoplasm of colon (Z12.11) Active confirmed Problem 09568406 Iron deficiency anemia, unspecified iron deficiency anemia type (D50.9) Active confirmed Problem Diverticular dis ease of colon (K57.30) Active confirmed Problem 259097750 Gastroesophageal reflux disease, unspecified whether esophagitis present (K21.9) Active confirmed Plan Of Treatment Pending Test Test Name Order Date US ABD 08/30/2020 Future Test Test Name Order Date UPPER GI ENDOSCOPY 08/30/2020 COLONOSCOPY 08/30/2020 Insurance Providers Payer Name Payer Address Payer Phone Subscriber Number Group Number Insured Name Patient Relationship to Insured Coverage Start Date Coverage End Date [facility] [address] [address] [place], [place] [id number] SARAH RAMÍREZ Self - patient is the insured Medical (General) History Medical History History ICD Code NIDDM Asthma--uses inhaler PRN Denies [place],CVA,renal disease Anemia-heavy menses Surgical History Surgery Date(Month/Year)
--- OUTSIDE RECORDS SUMMARY | 2024-11-02 14:55 | XMS_ITS | Clinical Summary ---
Author Organization [employer] Address [address] [place] [address] 7 [place] [address] Care Team Providers Care Administrative Fellow Name Role Phone Unavailable Primary Care Provider [...] 1967 FIT 1967 FOBT 1967 Sigmoidoscopy 1967 Disability Screening 1967 Alcohol/Substance Use Screening 1979 Tobacco Screening [...] 2023-2 5 season) 2023 Influenza Vaccine (#1) 2024 RSV Patients and Pa tients Aged 60 [...]
== END 2024-11-02 14:12 | disposition home or self-care (01) ==
LOC: HO.XRAY 14:11
PROVIDERS: PCP Internal Medicine; Visit Provider Internal Medicine
DX: M16.32 Unilateral osteoarthritis resulting from hip dysplasia, left hip (principal)
CPT/HCPCS: 73502

== ENCOUNTER → 2024-11-02 14:15 | Outpatient (BNV) | payer OTHER, SELFPAY | PROVIDERS: PCP Internal Medicine; Visit Provider Radiology Diagnostic Radiology | DX: M16.12 Unilateral primary osteoarthritis, left hip (principal) | CPT/HCPCS: 73502 ==

== ENCOUNTER 2025-01-25 07:16 | Outpatient (REF) | payer OTHER, SELFPAY ==
--- OUTSIDE RECORDS SUMMARY | 2025-01-25 07:18 | XMS_ITS | Encounter Summary ---
Author Organization [employer] Address [address] [place] [address] [address] [place] [address] Care Team Providers Care Cook Fish Eggs Name Role Phone Unavailable Primary Care Provider Unavailabl e Reason for Visit * Reason Onset Date Comments New Patient 11/21/2022 Encounter Details Date Type Department Care Team (Late st Contact Info) Description 11/21/2022 Telephone [facility]INE [address] [place], [place] [phone] Noel Perdomo MD [address] [place], [place] [phone] New Patient Social History Tobacco Use Types [...] not take insurance to please switch to [employer] C3, no answer/left Vm to call back at [phone]. documented in this encounter Plan of Treatment Not on file documented as of this encounter Visit Diagnoses Not on filedocumented in this encounter
--- OUTSIDE RECORDS SUMMARY | 2025-01-25 07:18 | XMS_ITS | Clinical Summary ---
Author Organization [facility] Address [address] [place] [address] Phone Care Team Providers Care Model And Pattern Supervisor Name Role Phone Anisha Trimble MD Primary Care Provider [phone] Surgical History Surgery Date Site/Laterality Comments CARPAL TUNNEL RELEASE 05/17/2021 Left PROCEDURE: [place] NEUROPLASTY &/TRANSPOS MEDIAN NRV CARPAL TUNNE; COMMENT: Left endoscopic carpal tunnel release with Dr. Rojas Medical History Medical History Date Comments Diabetes mellitus type 2, co ntrolled, with complications ([facility] V24, [facility] V28) DX:Diabetes mellitus type 2, controlled, with complications ([facility]) Asthma DX:Asthma Social History Tobacco Use Types [...] Last Done Comments Breast Cancer Screening 1967 Colorectal Cancer Screening: Colonoscopy 1967 Hepatitis B Vaccines (1 of 3 - 19+ 3-dose series) 10/22/1986 Cervical Cancer Screening: Pap Smear 10/22/1988 DTaP,Tdap,and Td Vaccines (2 - Td or Tdap) 01/09/2015 01/09/2005 Pneumococcal Vaccine: 50+ Years (1 of 1 - PCV) 10/22/2017 Zoster Vaccines (1 of 2) 10/22/2017 HIV Screening 03/05/2022 Hepatitis C Screening 03/05/2022 Social Influencers of Health Screening 03/05/2022 Depression Screening 04/08/2024 COVID-19 Vaccine ( season) 2024 02/15/2022, 10/14/2020, 09/23/2020 Influenza Vaccine (#1) 2024 9, 03/21/2017, 02/12/2016, Additional history exists RSV Immunization Adult Patients (1 - 1-dose 75+ series) 10/22/2042 HIB [...] Author PT LTGs General No Pedro Luis Mazariegos, PT Note: Pt will increase left shoulder AROM to >75% of WNL left shoulder testing Pt will increase left shoulder strength to 5/5 throughout Pt will report no left shoulder pain for first 4 hours of work day Pt will be independent with HEP Insurance [facility] PL[facility] Care Teams Model And Pattern Supervisor Relationship Specialty Start Date End Date Anisha Trimble MD [address] [place] [address] [place] [address] PCP - General Internal Medicine 03/03/24
--- OUTSIDE RECORDS SUMMARY | 2025-01-25 07:18 | XMS_ITS | Clinical Summary ---
Author Organization [employer] Address [address] [place] [address] 7 [place] [address] Care Team Providers Care Overlock Sleeve Setter Name Role Phone Unavailable Primary Care Provider [...] Vaccines (1 of 2) 10/22/2017 COVID-19 Vaccine (1 - 2023-2 5 season) 2024 Influenza Vaccine (#1) 2024 RSV Patients and [...]
--- OUTSIDE RECORDS SUMMARY | 2025-01-25 07:18 | XMS_ITS | Patient Health Record ---
Author Organization [facility] Address [address] [place] [address] Care Team Providers Care Business Computers Teacher Name Role Phone Ana M (RETIRED) Eleazar QUINTANILLA Primary Care Provide r Pedro Luis Adam Unavailable [phone] Allergies Allergen (clinical drug ingredient) Drug/Non Drug Allergy documented on EMR Reaction Allergy Type Onset Date Status Compazine Unknown Drug Allergy Active Reason For Referral No Information Medications Medication SIG (Take, Route, Frequency, Duration) Notes Start Date End Date Status Dulcolax (colon prep) 5 MG take at 3:00 p.m and 7:00p.m. Orally two tablets twice a day for one day; Duration: 1 day 08/30/2020 Active Ibuprofen 200 MG 2 Orally QPM Active MiraLax (colon prep) 8.3 ounce ((238) grams mixed with Gatorade or Crystal Light orally begin at 5:00 p.m. the day before the procedure; Duration: 1 day 08/30/2020 Active ProAir HFA 108 (90 Base) MCG/ACT 1 puff as needed Inhalation every 4 hrs Active Iron (Ferrous Sulfate) 325 (65 Fe) MG 1 tablet Orally Once a day; Duration: 30 day(s) Active Omeprazole 20 MG 1 capsule 30 minutes before morning meal Orally prn Active Amitriptyline HCl 10 MG TAKE 1 TABLET BY MOUTH EVERY DAY AT BEDTIME NEEDED Oral; Duration: 90 Active glipiZIDE 10 MG 1 tablet [...] W/U Status Risk Notes Problem Esophageal reflux (565796865) Esophageal reflux (K21.9) Active confirmed Problem Epigastric pain (29044895) Epigastric abdominal pain (R10.13) Active confirmed Problem Screening for malignant neoplasm of colon (255692526) Encounter for screening for malignant neoplasm of colon (Z12.11) Active confirmed Problem Iron deficiency anemia (67929714) Iron deficiency anemia, unspecified iron deficiency anemia type (D50.9) Active confirmed Problem Diverticular disease of colon (169245400) 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) Active confirmed Problem Gastroesophageal reflux disease (903128849) Gastroesophageal reflux disease, unspecified whether esophagitis present (K21.9) Active confirmed Plan Of Treatment Pending Test Test Name Order Date US ABD 08/30/2020 Future Test Test Name Order Date UPPER GI ENDOSCOPY 08/30/2020 COLONOSCOPY 08/30/2020 Insurance Providers Payer Name Payer Address Payer Phone Subscriber Number Group Number Insured Name Patient Relationship to Insured Coverage Start Date Coverage End Date [facility] [address] [address] [place], [place] [id number] SARAH RAMÍREZ Self - patient is the insured Medical (General) History Medical History History ICD Code NIDDM Asthma--uses inhaler PRN Denies CT,CVA,renal disease Anemia-heavy menses Surgical History Surgery Date(Month/Year)
[2025-01-25 07:30] LABS: MANUAL DIFF FLAG NO
[2025-01-25 08:06] LABS: Hematocrit 35.9 % (37.0-47.0); Hemoglobin 11.1 g/dl (12.0-16.0); Imm Gran Abs Auto 0.02 X10*3/uL (0.00-0.03); Imm Gran Pct Auto 0.3 % (0.0-0.4); Lymphocytes Absolute Auto 1.9 X10*3/uL (1.2-4.9); Mean Corpuscular HGB Conc 30.9 g/dl (31.0-35.0); Mean Corpuscular Hemoglobin 20.9 pg (27.0-33.0); Mean Corpuscular Volume 67.5 fL (80.0-98.0); NRBC Abs Auto 0.000 X10*3/uL (0.0-0.012); NRBC Pct Auto 0.0 /100WBC (0.0-0.2); Platelet Count 342 X10*3/uL (160-400); Red Blood Count 5.32 X10*6/uL (4.20-5.50); White Blood Count 5.7 X10*3/uL (4.8-10.8)
[2025-01-25 08:22] LABS: Alanine Aminotransferase 25 U/L (0-31); Albumin Level 4.6 g/dL (3.5-5.0); Alkaline Phosphatase 144 U/L (39-117); Anion Gap 14 (12-20); Aspartate Amino Transferase 21 U/L (5-31); Blood Urea Nitrogen 11 mg/dL (9-16); Calcium 9.6 mg/dL (8.4-10.2); Carbon Dioxide 26 mmol/L (22-29); Chloride 105 mmol/L (96-108); Cholesterol 161 mg/dL (<200); Estimated Glomerular Filt Rate > 60; HDL Cholesterol 47 mg/dL (>40); Potassium 4.2 mmol/L (3.3-5.1); Sodium 141 mmol/L (135-145); Total Protein 7.5 g/dL (6.5-8.0); Triglycerides 132 mg/dL (<150)
== END 2025-01-25 07:17 | disposition home or self-care (01) ==
LOC: HO.LAB 07:16
PROVIDERS: PCP Internal Medicine; Visit Provider Internal Medicine
DX: E11.9 Type 2 diabetes mellitus without complications (principal); E78.00 Pure hypercholesterolemia, unspecified; I10 Essential (primary) hypertension; M16.32 Unilateral osteoarthritis resulting from hip dysplasia, left hip; R10.9 Unspecified abdominal pain
CPT/HCPCS: 36415; 80053; 80061; 82043; 82570; 83036; 85025